=== PATIENT | female | born 1970 | race American Indian/Alaskan Native ===

== ENCOUNTER 2018-09-11 19:50 | Emergency (ER) | payer SELFPAY ==
--- NOTE | 2018-09-11 20:45 | Event Note ---
ED Screening Note ED Screening Note: HIT HEAD 1 W AGO SINCE HEADACHES AND OFF BALANCE PMH HTN AFIB GERD MD RX FLECANIDE ESOMEPRAZOLE DICCYCLMINE FOLIC ACID METOP TRAZADONE PAXIL NO BLOOD THINNER HYSTERECTOMY TUBAL APPY CHOLEY This initial assessment/diagnostic orders/clinical plan/treatment(s) is/are subject to change based on patients health status, clinical progression and re- assessment by fellow clinical providers in the ED. Further treatment and workup at subsequent clinical providers discretion. Patient/guardian urged not to elope from the ED as their condition may be serious if not clinically assessed and managed. Initial orders include: CT HEAD
[2018-09-11 20:48] VITALS: BP 112/79
[2018-09-11 21:01] LABS: Hematocrit 35.5 % (30.3-42.9); Hemoglobin 12.2 gm/dl (10.1-14.3); Mean Corpuscular HGB Conc 34 % (30-34); Mean Corpuscular Volume 99 fl (79-97); Platelet Count 165 K/mm3 (140-440); Red Blood Count 3.59 M/mm3 (3.65-5.03); Red Cell Distribution Width 18.9 % (13.2-15.2)
[2018-09-11 21:22] LABS: Alanine Aminotransferase 40 units/L (7-56); Albumin 4.4 g/dL (3.9-5); BUN/Creatinine Ratio 24; Blood Urea Nitrogen 12 mg/dL (7-17); Calcium 8.5 mg/dL (8.4-10.2); Hemolysis Index 5
[2018-09-11 21:31] LABS: Bilirubin,Urine NEG (Negative); Blood,Urine NEG (Negative); Color,Urine Yellow (Yellow); Mucus,Urine FEW /HPF; Protein,Urine <15 mg/dL mg/dL (Negative); Urobilinogen,Urine < 2.0 mg/dL (<2.0); WBC,Urine < 1.0 /HPF (0.0-6.0)
[2018-09-11] MEDS ORDERED: BENADRYL PO ONE (21:42)
[2018-09-11] MEDS ORDERED: REGLAN PO ONE (21:42)
[2018-09-11] MEDS ORDERED: TYLENOL PO ONE (21:42)
[2018-09-11] MEDS ORDERED: DELTASONE PO ONE (21:42)
--- NOTE | 2018-09-11 22:34 | Emergency Department Report ---
ED General Adult HPI - General Chief complaint: Neuro Symptoms/Deficit Stated complaint: HEAD PAIN Time Seen by Provider: 09/11/18 20:42 Source: patient Mode of arrival: Ambulatory Limitations: No Limitations - History of Present Illness Initial comments: pt is a 48 y/o aaf who presents s/p glf fall 1 week ago with no loc , complains of 4/10 headache occipital for past weak intermittent, pain is exacerbated by movement pain is relieved by rest pt denies n/v n cp no sob no lightheadedneds no n/v , pt denies fever sob post nasal drip and sinus congestion there is no wound , mild left occipital bruising. Onset/Timin -: week(s) Location: head Radiation: non-radiation Severity scale (0 -10): 4 Quality: aching Consistency: intermittent Worsens with: movement Associated Symptoms: headaches. denies: nausea/vomiting, shortness of breath, weakness Treatments Prior to Arrival: none - Related Data Previous Rx's Medication Instructions Recorded Last Taken Type Acetaminophen [Acetaminophen TAB] 1,000 mg PO Q6HR PRN #30 tablet 09/11/18 Unknown Rx Metoclopramide [Reglan] 10 mg PO Q6H PRN #30 tablet 09/11/18 Unknown Rx diphenhydrAMINE [Benadryl CAP] 25 mg PO Q6HR PRN #30 capsule 09/11/18 Unknown Rx Allergies Allergy/AdvReac Type Severity Reaction Status Date / Time No Known Allergies Allergy Unverified 09/11/18 20:22 ED Review of Systems ROS: Stated complaint: HEAD PAIN Other details as noted in HPI Constitutional: denies: chills, fever Eyes: denies: eye pain, eye discharge, vision change ENT: denies: ear pain, throat pain Respiratory: denies: cough, shortness of breath, wheezing Cardiovascular: denies: chest pain, palpitations Endocrine: no symptoms reported Gastrointestinal: denies: abdominal pain, nausea, diarrhea Genitourinary: denies: urgency, dysuria, discharge Musculoskeletal: denies: back pain, joint swelling, arthralgia Skin: denies: rash, lesions Neurological: headache. denies: weakness, numbness, paresthesias, confusion, abnormal gait, vertigo Psychiatric: as per HPI Hematological/Lymphatic: denies: easy bleeding, easy bruising ED Past Medical Hx - Past Medical History Previous Medical History?: Yes Hx Hypertension: Yes Hx Diabetes: Yes Hx Psychiatric Treatment: Yes (Depression) Additional medical history: A-fib, - Surgical History Past Surgical History?: Yes Hx Cholecystectomy: Yes Hx Appendectomy: Yes Additional Surgical History: X 5, Hysterectomy - Social History Smoking Status: Current Every Day Smoker Substance Use Type: None - Medications Home Medications: Home Medications Medication Instructions Recorded Confirmed Last Taken Type Acetaminophen [Acetaminophen TAB] 1,000 mg PO Q6HR PRN #30 tablet 09/11/18 Unknown Rx Metoclopramide [Reglan] 10 mg PO Q6H PRN #30 tablet 09/11/18 Unknown Rx diphenhydrAMINE [Benadryl CAP] 25 mg PO Q6HR PRN #30 capsule 09/11/18 Unknown Rx ED Physical Exam - General Limitations: No Limitations General appearance: alert, in no apparent distress - Head Head exam: Present: normocephalic, normal inspection - Expanded Head Exam Expanded Head exam: Absent: laceration, abrasion, contusion, hematoma, racoon eyes, salmon's sign, general tenderness, tenderness of temporal artery, CSF rhinorrhea, CSF otorrhea - Eye Eye exam: Present: normal appearance, PERRL, EOMI. Absent: conjunctival injection, nystagmus, periorbital swelling, periorbital tenderness Pupils: Present: normal accommodation - ENT ENT exam: Present: normal orophraynx, mucous membranes moist, TM's normal bilaterally, normal external ear exam - Neck Neck exam: Present: normal inspection, meningismus, full ROM. Absent: tenderness, lymphadenopathy, thyromegaly - Expanded Neck Exam Expanded Neck exam: Absent: tenderness, midline deformity, anterior neck swelling, thyroid mass, carotid bruit, tracheal deviation - Respiratory Respiratory exam: Present: normal lung sounds bilaterally. Absent: respiratory distress, wheezes, stridor, chest wall tenderness - Cardiovascular Cardiovascular Exam: Present: regular rate, normal rhythm, normal heart sounds. Absent: systolic murmur, diastolic murmur, rubs, gallop - GI/Abdominal GI/Abdominal exam: Present: soft, normal bowel sounds. Absent: distended, tenderness, bruit, hernia - Rectal Rectal exam: Present: deferred - Extremities Exam Extremities exam: Present: normal inspection, full ROM, normal capillary refill. Absent: tenderness, pedal edema, joint swelling, calf tenderness - Back Exam Back exam: Present: normal inspection. Absent: full ROM, tenderness, CVA tenderness (R), CVA tenderness (L), muscle spasm, paraspinal tenderness, vertebral tenderness, rash noted - Neurological Exam Neurological exam: Present: alert, oriented X3, CN II-XII intact, normal gait, r eflexes normal. Absent: motor sensory deficit - Expanded Neurological Exam Expanded Neurological exam: Absent: memory loss-remote event, memory loss-recent event, ataxia Patient oriented to: Present: person, place, time Speech: Present: fluid speech Cranial nerves: EOM's Intact: Normal, Gag Reflex: Normal, Tongue Deviation: Normal, Nystagmus: Normal, Facial Sensation: Normal Cerebellar function: Finger to Nose: Normal, Heel to [place]: Normal, Romberg: Normal Upper motor neuron: Charlie Neglect: Normal, Pronator Drift: Normal, Babinski Sign: Normal, Sensory Extinction: Normal Sensory exam: Upper Extremity Light Touch: Normal, Upper Extremity Pin Prick: Normal, Upper Extremity Temperature: Normal, UE 2 Point Discrimination: Normal, Lower Extremity Light Touch: Normal, Lower Extremity Pin Prick: Normal, Lower Extremity Temperature: Normal, LE 2 Point Discrimination: Normal Motor strength exam: RUE: 5, LUE: 5, RLE: 5, LLE: 5 DTR: bicep (R): 2+, bicep (L): 2+, ankle (R): 2+, ankle (L): 2+ Best Eye Response (Gina): (4) open spontaneously Best Motor Response (Gina): (6) obeys commands Best Verbal Response (Gina): (5) oriented [place] Total: 15 - Psychiatric Psychiatric exam: Present: normal affect, normal mood - Skin Skin exam: Present: warm, dry, intact, normal color. Absent: rash ED Course Vital Signs 09/11/18 20:45 Temperature 97.8 F Pulse Rate 84 Respiratory 18 Rate Blood Pressure 112/79 O2 Sat by Pulse 98 Oximetry ED Medical Decision Making - Lab Data Result diagrams: 09/11/18 20:50 09/11/18 20:50 - Radiology Data Radiology results: report reviewed, image reviewed Ordering Physician: GLENNA ARAGON Date of Service: 09/11/18 Procedure(s): CT head/brain wo con Accession Number(s): [id number] cc: GLEN[facility] WITHOUT CONTRAST INDICATION / CLINICAL INFORMATION: HEADACHE SP FALL. TECHNIQUE: All CT scans at this location are performed using CT dose reduction for ALARA by means of automated exposure control. COMPARISON: None available. FINDINGS: HEMORRHAGE: None. EXTRA-AXIAL SPACES: Normal in size and morphology for the patient's age. VENTRICULAR SYSTEM: Normal in size and morphology for the patient's age. CEREBRAL PARENCHYMA: No significant abnormality. No acute territorial infarct. MIDLINE SHIFT OR HERNIATION: None. CEREBELLUM / BRAINSTEM: No significant abnormality. ORBITS: Normal as visualized. SOFT TISSUES of HEAD: No significant abnormality. CALVARIUM: No significant abnormality. PARANASAL SINUSES / MASTOID AIR CELLS: Normal as visualized. ADDITIONAL FINDINGS: None. IMPRESSION: 1. No acute intracranial abnormality. Signer Name: Morteza To MD Signed: 09/11/2018 10:47 PM Workstation Name: [id number] Transcribed By: DMB Dictated By: Morteza To MD Electronically Authenticated By: Morteza To MD Signed Date/Time: 09/11/182246 DD/ 43 TD/TT: - Medical Decision Making CT head is normal , headache is improved plan: dc to home with rx for tylenol, reglan, benadryl prn headache follow up with pcp in 2-3 days pt verbalized agreement and understanding of same, pt dc'd to home in stable condition at this time. Critical care attestation.: If time is entered above; I have spent that time in minutes in the direct care of this critically ill patient, excluding procedure time. ED Disposition Clinical Impression: Headache Qualifiers: Headache type: unspecified Headache chronicity pattern: acute headache Intractability: not intractable Qualified Code(s): R51 - Headache Disposition: DC-01 TO HOME OR SELFCARE Is pt being admited?: No Does the pt Need Aspirin: No Condition: Stable Instructions: Acute Headache (ED) Prescriptions: Acetaminophen [Acetaminophen TAB] 1,000 mg PO Q6HR PRN #30 tablet PRN Reason: Headache diphenhydrAMINE [Benadryl CAP] 25 mg PO Q6HR PRN #30 capsule PRN Reason: Headache Metoclopramide [Reglan] 10 mg PO Q6H PRN #30 tablet PRN Reason: Headache Referrals: DIOGO FARAH MD [Staff Physician] - 3-5 Days Forms: Work/School Release Form(ED) Time of Disposition: 23:09
--- NOTE | 2018-09-11 22:52 | Cat Scan Report ---
CT HEAD WITHOUT CONTRAST INDICATION / CLINICAL INFORMATION: HEADACHE SP FALL. TECHNIQUE: All CT scans at this location are performed using CT dose reduction for ALARA by means of automated e xposure control. COMPARISON: None available. FINDINGS: HEMORRHAGE: None. EXTRA-AXIAL SPACES: Normal in size and morphology for the patient's age. VENTRICULAR SYSTEM: Normal in size and morphology for the patient's age. CEREBRAL PARENCHYMA: No significant abnormality. No acute territorial infarct. MIDLINE SHIFT OR HERNIATION: None. CEREBELLUM / BRAINSTEM: No significant abnormality. ORBITS: Normal as visualized. SOFT TISSUES of HEAD: No significant abnormality. CALVARIUM: No significant abnormality. PARANASAL SINUSES / MASTOID AIR CELLS: Normal as visualized. ADDITIONAL FINDINGS: None. IMPRESSION: 1. No acute intracranial abnormality. Signer Name: Morteza To MD Signed: 09/11/2018 10:47 PM Workstation Name: [id number]
== END 2018-09-11 23:15 | disposition home or self-care (01) ==
LOC: ED 19:50
DX: R51 Headache (principal); I10 Essential (primary) hypertension; F32.9 Major depressive disorder, single episode, unspecified; F17.200 Nicotine dependence, unspecified, uncomplicated; Z90.710 Acquired absence of both cervix and uterus; Z90.49 Acquired absence of other specified parts of digestive tract; Z90.89 Acquired absence of other organs
CPT/HCPCS: 36415; 70450; 80053; 81001; 85027; 99284; J7512

== ENCOUNTER 2018-12-25 23:48 | Inpatient (IN) | payer OTHER ==
[2018-12-26] MEDS ORDERED: dilTIAZem 25 MG/5 ML INJ IV ONE ×2 (00:17→00:32)
[2018-12-26] MEDS ORDERED: dilTIAZem 25 MG/5 ML INJ ONE (00:18)
[2018-12-26 00:35] LABS: Hematocrit 38.3 % (30.3-42.9); Hemoglobin 13.1 gm/dl (10.1-14.3); Mean Corpuscular HGB Conc 34 % (30-34); Mean Corpuscular Volume 106 fl (79-97); Platelet Count 130 K/mm3 (140-440); Red Blood Count 3.61 M/mm3 (3.65-5.03); Red Cell Distribution Width 17.8 % (13.2-15.2)
[2018-12-26] MEDS ORDERED: SODIUM CHLORIDE 0.9% 250ML 250 ML IV ONE (00:37)
[2018-12-26] MEDS ORDERED: SODIUM CHLORIDE 0.9% 1000 ML 1,000 ML ONE (00:39)
[2018-12-26 00:45] LABS: INR 0.97 (0.87-1.13)
[2018-12-26 00:46] LABS: Partial Thromboplastin Time 28.1 Sec. (24.2-36.6)
--- NOTE | 2018-12-26 00:48 | XRay Report ---
CHEST 1 VIEW 0029 INDICATION / CLINICAL INFORMATION: cp, sob. COMPARISON: None available. FINDINGS: SUPPORT DEVICES: None HEART / MEDIASTINUM: No significant abnormality. LUNGS / PLEURA: No significant pulmonary or pleural abnormality. No pneumothorax. ADDITIONAL FINDINGS: No significant additional findings. IMPRESSION: No significant acute abnormality Signer Name: Da Barnett MD Signed: 12/26/2018 12:44 AM Workstation Name: [id number]
[2018-12-26 00:58] LABS: BUN/Creatinine Ratio 13; Blood Urea Nitrogen 5 mg/dL (7-17); Calcium 8.8 mg/dL (8.4-10.2); Hemolysis Index 18
[2018-12-26] MEDS ORDERED: dilTIAZem/D5W 100 MG/100 ML BAG IV SCH (01:00)
--- NOTE | 2018-12-26 01:04 | Emergency Department Report ---
ED Chest Pain HPI - General Chief Complaint: Chest Pain Stated Complaint: CHEST PAIN/AFIB Time Seen by Provider: 12/26/18 00:06 Source: patient Mode of arrival: Ambulatory Limitations: No Limitations - History of Present Illness Initial Comments: 38-year-old female with history of atrial fibrillation noncompliant with metoprolol and flecainide times at least 3 months presents to the hospital complaining of substernal chest pressure and palpitations with racing heartbeat that started 30 minutes prior to arrival. Constant without aggravating or allev iating factors. No shortness of breath. Patient denies nausea, vomiting, or diaphoresis. Patient's last cardiology visit was in [place] 2 years ago. He does not currently take any anticoagulation. She states she also takes a PPI for reflux. - Related Data Previous Rx's Medication Instructions Recorded Last Taken Type Acetaminophen [Acetaminophen TAB] 1,000 mg PO Q6HR PRN #30 tablet 09/11/18 Unknown Rx Metoclopramide [Reglan] 10 mg PO Q6H PRN #30 tablet 09/11/18 Unknown Rx diphenhydrAMINE [Benadryl CAP] 25 mg PO Q6HR PRN #30 capsule 09/11/18 Unknown Rx Allergies Allergy/AdvReac Type Severity Reaction Status Date / Time No Known Allergies Allergy Verified 12/26/18 00:18 Heart Score - HEART Score History: Slightly suspicious EKG: Non-specific Age: 45-65 Risk factors: 1-2 risk factors Troponin: < normal limit HEART Score: 3 ED Review of Systems ROS: Stated complaint: CHEST PAIN/AFIB Other details as noted in HPI Comment: All other systems reviewed and negative ED Past Medical Hx - Past Medical History Hx Hypertension: Yes Hx Diabetes: Yes (borderline) Hx Psychiatric Treatment: Yes (Depression) Additional medical history: A-fib, - Surgical History Hx Cholecystectomy: Yes Hx Appendectomy: Yes Additional Surgical History: X 5, Hysterectomy - Social History Smoking Status: Current Every Day Smoker Substance Use Type: None - Medications Home Medications: Home Medications Medication Instructions Recorded Confirmed Last Taken Type Acetaminophen [Acetaminophen TAB] 1,000 mg PO Q6HR PRN #30 tablet 09/11/18 Unknown Rx Metoclopramide [Reglan] 10 mg PO Q6H PRN #30 tablet 09/11/18 Unknown Rx diphenhydrAMINE [Benadryl CAP] 25 mg PO Q6HR PRN #30 capsule 09/11/18 Unknown Rx ED Physical Exam - General Limitations: No Limitations - Other Other exam information: General: No acute distress Head: Atraumatic Eyes: normal appearance ENT: Moist mucous membranes Neck: Normal appearance, no midline tenderness Chest: Clear to auscultation bilaterally CV: Tachycardic irregular rhythm Abdomen: Soft, alterable abdominal surgical scars a reducible ventral hernia, soft, nondistended Back: Normal inspection Extremity: Normal inspection infection, full range of motion Neuro: Alert O x 3, no facial asymmetry, speech clear, no gross motor sensory deficit Psych: Appropriate behavior Skin: No rash ED Course Vital Signs 12/25/18 12/26/18 12/26/18 23:53 00:06 00:08 Temperature 97.4 F L Pulse Rate 165 H 171 H 160 H Respiratory 12 19 Rate Blood Pressure 111/80 O2 Sat by Pulse 97 Oximetry 12/26/18 12/26/18 12/26/18 00:16 00:26 00:30 Temperature Pulse Rate 166 H 171 H 134 H Respiratory 21 25 H Rate Blood Pressure 114/88 112/61 O2 Sat by Pulse 98 100 Oximetry 12/26/18 12/26/18 12/26/18 00:46 00:55 01:00 Temperature Pulse Rate 167 H 114 H 107 H Respiratory 16 17 Rate Blood Pressure 91/61 95/64 O2 Sat by Pulse 98 98 Oximetry 12/26/18 12/26/18 12/26/18 01:16 01:30 01:46 Temperature Pulse Rate 100 H 98 H 94 H Respiratory 16 19 16 Rate Blood Pressure 114/79 110/78 107/76 O2 Sat by Pulse 99 97 98 Oximetry 12/26/18 12/26/18 02:00 02:16 Temperature Pulse Rate 96 H 102 H Respiratory 17 16 Rate Blood Pressure 107/76 117/78 O2 Sat by Pulse 98 96 Oximetry - Reevaluation(s) Reevaluation #1: 12/26/18 01:44 initial rhythm afib/aflutter on monitor with fluctuating rate and rhythm pt given cardizem 20mg then cardizem initiated. Posttreatment rhythm is now normal sinus. Drip will be continued as of now and patient is the hospitalist service with neurology consultation. LB score - Lb Score Age > 65: (0) No Aspirin use within the Past 7 Days: (0) No 3 or more CAD Risk Factors: (0) No 2 or more Angina events in past 24 hrs: (0) No Known CAD with more than 50% Stenosis: (0) No Elevated Cardiac Markers: (0) No ST Deviation Greater than 0.5mm: (0) No LB Score: 0 ED Medical Decision Making - Lab Data Result diagrams: 12/26/18 00:19 12/26/18 00:19 Lab Results 12/26/18 12/26/18 12/26/18 Range/Units 00:19 00: 00:19 WBC 4.3 L (4.5-11.0) K/mm3 RBC 3.61 L (3.65-5.03) M/mm3 Hgb 13.1 (10.1-14.3) gm/dl Hct 38.3 (30.3-42.9) % MCV 106 H (79-97) fl MCH 36 H (28-32) pg MCHC 34 (30-34) % RDW 17.8 H (13.2-15.2) % Plt Count 130 L (140-440) K/mm3 Lymph % (Auto) Secretary Receptionist Seg Neutrophils % Secretary Receptionist PT 12.8 (12.2-14.9) Sec. INR 0.97 (0.87-1.13) APTT 28.1 (24.2-36.6) Sec. Sodium 139 (137-145) mmol/L Potassium 3.0 L (3.6-5.0) mmol/L Chloride 103.3 (98-107) mmol/L Carbon Dioxide 15 L (22-30) mmol/L Anion Gap 24 mmol/L BUN 5 L (7-17) mg/dL Creatinine 0.4 L (0.7-1.2) mg/dL Estimated GFR > 60 ml/min BUN/Creatinine Ratio 13 % Glucose 103 H (65-100) mg/dL Calcium 8.8 (8.4-10.2) mg/dL Troponin T < 0.010 (0.00-0.029) ng/mL TSH (0.270-4.200) mlU/mL Free T4 (0.76-1.46) ng/dL 12/26/18 Range/Units 00:19 WBC (4.5-11.0) K/mm3 RBC (3.65-5.03) M/mm3 Hgb (10.1-14.3) gm/dl Hct (30.3-42.9) % MCV (79-97) fl MCH (28-32) pg MCHC (30-34) % RDW (13.2-15.2) % Plt Count (140-440) K/mm3 Lymph % (Auto) Seg Neutrophils % PT (12.2-14.9) Sec. INR (0.87-1.13) APTT (24.2-36.6) Sec. Sodium (137-145) mmol/L Potassium (3.6-5.0) mmol/L Chloride (98-107) mmol/L Carbon Dioxide (22-30) mmol/L Anion Gap mmol/L BUN (7-17) mg/dL Creatinine (0.7-1.2) mg/dL Estimated GFR ml/min BUN/Creatinine Ratio % Glucose (65-100) mg/dL Calcium (8.4-10.2) mg/dL Troponin T (0.00-0.029) ng/mL TSH 1.980 (0.270-4.200) mlU/mL Free T4 1.22 (0.76-1.46) ng/dL - EKG Data -: EKG Interpreted by Me (suspected a flutter rate 165 ) - Radiology Data Radiology results: report reviewed Fluoro Time In Minutes: CHEST 1 VIEW 0029 INDICATION / CLINICAL INFORMATION: cp, sob. COMPARISON: None available. FINDINGS: SUPPORT DEVICES: None HEART / MEDIASTINUM: No significant abnormality. LUNGS / PLEURA: No significant pulmonary or pleural abnormality. No pneumothorax. ADDITIONAL FINDINGS: No significant additional findings. IMPRESSION: No significant acute abnormality - Medical Decision Making patients initial rhythm was narrow complex tachycardic and 160s. On a monitor rhythm with fluctuate greatly 170s. Given the rapid change in heart rate and irregular beats noted on monitor patient received Cardizem for A. fib/flutter with RVR. Heart rate improved with initial bolus and Cardizem drip initiated. Repeat EKG after slowing down rate shows sinus rhythm. Patient received by mouth potassium for mild hypokalemia. Magnesium is normal. Hospitalist informed for admission. - Differential Diagnosis arrhythmia, SVT, A. fib, electrolyte on the monitor, LA Critical Care Time: Yes Critical care time in (mins) excluding proc time.: 35 Critical care attestation.: If time is entered above; I have spent that time in minutes in the direct care of this critically ill patient, excluding procedure time. ED Disposition Clinical Impression: Atrial fibrillation with rapid ventricular response, Noncompliance with medication regimen, Hypokalemia Disposition: OP ADMIT IP TO THIS HOSP Is pt being admited?: Yes Condition: Stable Time of Disposition: 02:00
[2018-12-26 01:09] LABS: Free T4 (Free Thyroxine) 1.22 ng/dL (0.76-1.46)
[2018-12-26] MEDS ORDERED: POTASSIUM CHLORIDE ER 20 MEQ TAB PO ONE (01:45)
[2018-12-26] MEDS ORDERED: ONDANSETRON 4 MG/2 ML INJ IV PRN (02:03)
[2018-12-26] MEDS ORDERED: ACETAMINOPHEN 325 MG TAB PO PRN (02:03)
--- NOTE | 2018-12-26 02:40 | History and Physical Report ---
History of Present Illness Date of examination: 12/26/18 Date of admission: 12/25/2018 Chief complaint: palpitation History of present illness: Pt is a 38-year-old female with PMHx of atrial fibrillation, asthma, DM type 2, HTN who presents to the ER with c/o palpitation a few hours prior to coming to the ER. Pt states that the palpitation started suddenly, she has a history of A- Fib, she has been taking metoprolol and flecainide for her A-Fib, pt reports mild substernal chest pressure and palpitations, denies diaphoresis, denies nausea, denies vomiting, denies headache, denies dizziness. 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 In the ER pt's HR was 117, she was started on cardizem drip and admitted for further evaluation and treatment. Past History Past Medical History: diabetes, hypertension, other (asthma) Past Surgical History: Other (multiple surgery) Social history: no significant social history Family history: no significant family history Medications and Allergies Allergies Allergy/AdvReac Type Severity Reaction Status Date / Time No Known Allergies Allergy Verified 12/26/18 00:18 Home Medications Medication Instructions Recorded Confirmed Last Taken Type Acetaminophen [Acetaminophen TAB] 1,000 mg PO Q6HR PRN #30 tablet 09/11/18 Unknown Rx Metoclopramide [Reglan] 10 mg PO Q6H PRN #30 tablet 09/11/18 Unknown Rx diphenhydrAMINE [Benadryl CAP] 25 mg PO Q6HR PRN #30 capsule 09/11/18 Unknown Rx Active Meds: Active Medications Acetaminophen (Tylenol) 650 mg PO Q4H PRN PRN Reason: Pain MILD(1-3)/Fever >100.5/COOMBS Diltiazem HCl (Cardizem/D5w 100mg/100ml) 100 mg in 100 mls @ 5 mls/hr IV TITR IMANI; Protocol Last Admin: 12/26/18 00:55 Dose: 5 mg/hr, 5 mls/hr Documented by: Ondansetron HCl (Zofran) 4 mg IV Q8H PRN PRN Reason: Nausea And Vomiting Sodium Chloride (Sodium Chloride Flush Syringe 10 Ml) 10 ml IV BID IMANI Sodium Chloride (Sodium Chloride Flush Syringe 10 Ml) 10 ml IV PRN PRN PRN Reason: LINE FLUSH Review of Systems Cardiovascular: palpitations Exam - Constitutional Vitals: Temp Pulse Resp BP Pulse Ox 97.4 F L 102 H 16 117/78 96 12/25/18 23:53 12/26/18 02:16 12/26/18 02:16 12/26/18 02:16 12/26/18 02:16 General appearance: Present: no acute distress - EENT Eyes: Present: EOM intact ENT: hearing intact - Neck Neck: Present: normal ROM - Respiratory Respiratory effort: normal Respiratory: bilateral: CTA - Cardiovascular Rhythm: irregularly irregular - Extremities Extremities: no ischemia, No edema Peripheral Pulses: within normal limits - Abdominal Female genitourinary: Present: deferred - Rectal Rectal Exam: deferred - Integumentary Integumentary: Present: warm, dry - Musculoskeletal Musculoskeletal: strength equal bilaterally - Psychiatric Psychiatric: cooperative - Neurologic Neurologic: moves all extremities Results - Labs CBC & Chem 7: 12/26/18 00:19 12/26/18 00:19 Labs: Laboratory Last Values WBC 4.3 K/mm3 (4.5-11.0) L 12/26/18 00:19 RBC 3.61 M/mm3 (3.65-5.03) L 12/26/18 00:19 Hgb 13.1 gm/dl (10.1-14.3) 12/26/18 00:19 Hct 38.3 % (30.3-42.9) 12/26/18 00:19 MCV 106 fl (79-97) H 12/26/18 00:19 MCH 36 pg (28-32) H 12/26/18 00:19 MCHC 34 % (30-34) 12/26/18 00:19 RDW 17.8 % (13.2-15.2) H 12/26/18 00:19 Plt Count 130 K/mm3 (140-440) L 12/26/18 00:19 Lymph % (Auto) Graining Press Operator 12/26/18 00:19 Seg Neutrophils % Graining Press Operator 12/26/18 00:19 PT 12.8 Sec. (12.2-14.9) 12/26/18 00:19 INR 0.97 (0.87-1.13) 12/26/18 00:19 APTT 28.1 Sec. (24.2-36.6) 12/26/18 00:19 Sodium 139 mmol/L (137-145) 12/26/18 00:19 Potassium 3.0 mmol/L (3.6-5.0) L 12/26/18 00:19 Chloride 103.3 mmol/L (98-107) 12/26/18 00:19 Carbon Dioxide 15 mmol/L (22-30) L 12/26/18 00:19 Anion Gap 24 mmol/L 12/26/18 00:19 BUN 5 mg/dL (7-17) L 12/26/18 00:19 Creatinine 0.4 mg/dL (0.7-1.2) L 12/26/18 00:19 Estimated GFR > 60 ml/min 12/26/18 00:19 BUN/Creatinine Ratio 13 % 12/26/18 00:19 Glucose 103 mg/dL (65-100) H 12/26/18 00:19 Calcium 8.8 mg/dL (8.4-10.2) 12/26/18 00:19 Magnesium 1.80 mg/dL (1.7-2.3) 12/26/18 Unknown Troponin T < 0.010 ng/mL (0.00-0.029) 12/26/18 00:19 TSH 1.980 mlU/mL (0.270-4.200) 12/26/18 00:19 Free T4 1.22 ng/dL (0.76-1.46) 12/26/18 00:19 Assessment and Plan Assessment and plan: 1. Afib with RVR 2. DM type 2 (diet control 3. HTN 4. H/o asthma Plan: Pt is admitted to [facility] for A-Fib with RVR Continue cardizem drip Continue Cardiac enzyme x 2 more Consult cardiology Monitor vital signs/HR Continue home meds DVT prophylaxis with lovenox Plan of care d/w pt, voiced understading Advance Directives: Yes VTE prophylaxis?: Chemical Plan of care discussed with patient/family: Yes
[2018-12-26 05:17] LABS: Anisocytosis 1+; Basophils % (Manual) 0 % (0.0-1.8); Macrocytosis 1+; Platelet Estimate Consistent w Auto; Total Cells Counted 100
[2018-12-26] MEDS ORDERED: oxyCODONE /ACETAMINOPHEN 5-325MG TAB PO PRN (10:21)
--- NOTE | 2018-12-26 11:45 | Consultation ---
History of Present Illness Consult date: 12/26/18 Consult reason: atrial fibrillation History of present illness: This is a 48 year old woman who has a history of paroxysmal atrial fibrillation previously treated with flecainide and metoprolol. She is not on oral anticoagulation presumably due to lows CHADS2 Her latest cardiac workup was done at [facility] late February. The echocardiogram reports a normal left ventricular systolic function, ejection fraction 55%, and the thallium showed no ischemia. 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 She presented with complaints of palpitations found to be in rapid atrial flut ter with a 2:1 conduction ratio. Labs measurement shows hypokalemia with a potassium at 3.0. TSH is within normal limits. Patient was treated intravenous Diltiazem and has since reverted to sinus rhythm. Cardiology consultation has been requested. Past History Past Medical History: diabetes, hypertension, other (asthma) Past Surgical History: Other (multiple surgery) Social history: no significant social history Family history: no significant family history Medications and Allergies Allergies Allergy/AdvReac Type Severity Reaction Status Date / Time No Known Allergies Allergy Verified 12/26/18 00:18 Home Medications Medication Instructions Recorded Confirmed Last Taken Type Acetaminophen [Acetaminophen TAB] 1,000 mg PO Q6HR PRN #30 tablet 09/11/18 Unknown Rx Metoclopramide [Reglan] 10 mg PO Q6H PRN #30 tablet 09/11/18 Unknown Rx diphenhydrAMINE [Benadryl CAP] 25 mg PO Q6HR PRN #30 capsule 09/11/18 Unknown Rx Active Meds: Active Medications Acetaminophen (Tylenol) 650 mg PO Q4H PRN PRN Reason: Pain MILD(1-3)/Fever >100.5/COOMBS Last Admin: 12/26/18 08:36 Dose: 650 mg Documented by: Diltiazem HCl (Cardizem/D5w 100mg/100ml) 100 mg in 100 mls @ 5 mls/hr IV TITR IMANI; Protocol Last Admin: 12/26/18 00:55 Dose: 5 mg/hr, 5 mls/hr Documented by: Ondansetron HCl (Zofran) 4 mg IV Q8H PRN PRN Reason: Nausea And Vomiting Oxycodone/Acetaminophen (Percocet 5/325) 1 tab PO Q6H PRN PRN Reason: Pain, Moderate (4-6) Sodium Chloride (Sodium Chloride Flush Syringe 10 Ml) 10 ml IV BID IMANI Sodium Chloride (Sodium Chloride Flush Syringe 10 Ml) 10 ml IV PRN PRN PRN Reason: LINE FLUSH Physical Examination Vital Signs Temp Pulse Resp BP Pulse Ox 97.4 F L 165 H 12 111/80 97 12/25/18 23:53 12/25/18 23:53 12/25/18 23:53 12/25/18 23:53 12/25/18 23:53 General appearance: no acute distress HEENT: Positive: PERRL Neck: Positive: trachea midline Cardiac: Positive: Reg Rate and Rhythm Lungs: Positive: Decreased Breath Sounds Neuro: Positive: Grossly Intact Extremities: Absent: edema Results 12/26/18 00:19 12/26/18 00:19 Coagulation 12/26/18 Range/Units 00:19 PT 12.8 (12.2-14.9) Sec. INR 0.97 (0.87-1.13) APTT 28.1 (24.2-36.6) Sec. CBC 12/26/18 Range/Units 00:19 WBC 4.3 L (4.5-11.0) K/mm3 RBC 3.61 L (3.65-5.03) M/mm3 Hgb 13.1 (10.1-14.3) gm/dl Hct 38.3 (30.3-42.9) % Plt Count 130 L (140-440) K/mm3 Comprehensive Metabolic Panel 12/26/18 Range/Units 00:19 Sodium 139 (137-145) mmol/L Potassium 3.0 L (3.6-5.0) mmol/L Chloride 103.3 (98-107) mmol/L Carbon Dioxide 15 L (22-30) mmol/L BUN 5 L (7-17) mg/dL Creatinine 0.4 L (0.7-1.2) mg/dL Glucose 103 H (65-100) mg/dL Calcium 8.8 (8.4-10.2) mg/dL Assessment and Plan Paroxysmal atrial fib/flutter reverted to sinus rhythm on IV diltiazem normal MPI 02/2018 at [facility] normal LVEF 55% done at [facility] 02/2018
--- NOTE | 2018-12-26 12:05 | Progress Note ---
Assessment and Plan Assessment and plan: Paroxysmal atrial fibrillation. Continue IV diltiazem per cardiology. Patient with normal MPI February 2018 at [facility]. Normal EF of 55%. Asthma. Compensated. Diabetes mellitus type 2. Continue Accu-Cheks and sliding scale insulin. Hypertension. Continue antihypertensive medications. History Interval history: No new issues overnight. Hospitalist Physical - Constitutional Vitals: Temp Pulse Resp BP Pulse Ox 97.9 F 96 H 18 122/85 95 12/26/18 08:45 12/26/18 05:00 12/26/18 08:45 12/26/18 08:45 12/26/18 08:45 General appearance: Present: no acute distress - EENT Eyes: Present: PERRL, EOM intact ENT: hearing intact, clear oral mucosa, dentition normal - Neck Neck: Present: supple, normal ROM - Respiratory Respiratory effort: normal Respiratory: bilateral: CTA - Cardiovascular Rhythm: regular Heart Sounds: Present: S1 & S2. Absent: gallop, rub - Extremities Extremities: no ischemia, No edema, Full ROM - Abdominal General gastrointestinal: soft, non-tender, non-distended, normal bowel sounds - Integumentary Integumentary: Present: clear, warm, dry - Neurologic Neurologic: CNII-XII intact, moves all extremities Results - Labs CBC & Chem 7: 12/26/18 00:19 12/26/18 00:19 Labs: Laboratory Last Values WBC 4.3 K/mm3 (4.5-11.0) L 12/26/18 00:19 RBC 3.61 M/mm3 (3.65-5.03) L 12/26/18 00:19 Hgb 13.1 gm/dl (10.1-14.3) 12/26/18 00:19 Hct 38.3 % (30.3-42.9) 12/26/18 00:19 MCV 106 fl (79-97) H 12/26/18 00:19 MCH 36 pg (28-32) H 12/26/18 00:19 MCHC 34 % (30-34) 12/26/18 00:19 RDW 17.8 % (13.2-15.2) H 12/26/18 00:19 Plt Count 130 K/mm3 (140-440) L 12/26/18 00:19 Lymph % (Auto) Translational Specialist 10/31/19 00:19 Add Manual Diff Complete 12/26/18 00:19 Total Counted 100 12/26/18 00:19 Seg Neutrophils % Translational Specialist 12/26/18 00:19 Seg Neuts % (Manual) 40.0 % (40.0-70.0) 12/26/18 00:19 Band Neutrophils % 0 % 12/26/18 00:19 Lymphocytes % (Manual) 58.0 % (13.4-35.0) H 12/26/18 00:19 Reactive Lymphs % (Man) 0 % 12/26/18 00:19 Monocytes % (Manual) 1.0 % (0.0-7.3) 12/26/18 00:19 Eosinophils % (Manual) 1.0 % (0.0-4.3) 12/26/18 00:19 Basophils % (Manual) 0 % (0.0-1.8) 12/26/18 00:19 Metamyelocytes % 0 % 12/26/18 00:19 Myelocytes % 0 % 12/26/18 00:19 Promyelocytes % 0 % 12/26/18 00:19 Blast Cells % 0 % 12/26/18 00:19 Nucleated RBC % Not Reportable 12/26/18 00:19 Seg Neutrophils # Man 1.7 K/mm3 (1.8-7.7) L 12/26/18 00:19 Band Neutrophils # 0.0 K/mm3 12/26/18 00:19 Lymphocytes # (Manual) 2.5 K/mm3 (1.2-5.4) 12/26/18 00:19 Abs React Lymphs (Man) 0.0 K/mm3 12/26/18 00:19 Monocytes # (Manual) 0.0 K/mm3 (0.0-0.8) 12/26/18 00:19 Eosinophils # (Manual) 0.0 K/mm3 (0.0-0.4) 12/26/18 00:19 Basophils # (Manual) 0.0 K/mm3 (0.0-0.1) 12/26/18 00:19 Metamyelocytes # 0.0 K/mm3 12/26/18 00:19 Myelocytes # 0.0 K/mm3 12/26/18 00:19 Promyelocytes # 0.0 K/mm3 12/26/18 00:19 Blast Cells # 0.0 K/mm3 12/26/18 00:19 WBC Morphology Not Reportable 12/26/18 00:19 Hypersegmented Neuts Not Reportable 12/26/18 00:19 Hyposegmented Neuts Not Reportable 12/26/18 00:19 Hypogranular Neuts Not Reportable 12/26/18 00:19 Smudge Cells Not Reportable 12/26/18 00:19 Toxic Granulation Not Reportable 12/26/18 00:19 Toxic Vacuolation Not Reportable 12/26/18 00:19 Dohle Bodies Not Reportable 12/26/18 00:19 Pelger-Huet Anomaly Not Reportable 12/26/18 00:19 Serena Rods Not Reportable 12/26/18 00:19 Platelet Estimate Consistent w auto 12/26/18 00:19 Clumped Platelets Not Reportable 12/26/18 00:19 Plt Clumps, EDTA Not Reportable 12/26/18 00:19 Large Platelets Not Reportable 12/26/18 00:19 Giant Platelets Not Reportable 12/26/18 00:19 Platelet Satelliting Not Reportable 12/26/18 00:19 Plt Morphology Comment Not Reportable 12/26/18 00:19 RBC Morphology Not Reportable 12/26/18 00:19 Dimorphic RBCs Not Reportable 12/26/18 00:19 Polychromasia Not Reportable 12/26/18 00:19 Hypochromasia Not Reportable 12/26/18 00:19 Poikilocytosis Not Reportable 12/26/18 00:19 Anisocytosis 1+ 12/26/18 00:19 Microcytosis Not Reportable 12/26/18 00:19 Macrocytosis 1+ 12/26/18 00:19 Spherocytes Not Reportable 12/26/18 00:19 Pappenheimer Bodies Not Reportable 12/26/18 00:19 Sickle Cells Not Reportable 12/26/18 00:19 Target Cells Not Reportable 12/26/18 00:19 Tear Drop Cells Not Reportable 12/26/18 00:19 Ovalocytes Not Reportable 12/26/18 00:19 Helmet Cells Not Reportable 12/26/18 00:19 Gallego-Schneider Bodies Not Reportable 12/26/18 00:19 Partlow Rings Not Reportable 12/26/18 00:19 [place] Cells Not Reportable 12/26/18 00:19 Bite Cells Not Reportable 12/26/18 00:19 Crenated Cell Not Reportable 12/26/18 00:19 Elliptocytes Not Reportable 12/26/18 00:19 Acanthocytes (Spur) Not Reportable 12/26/18 00:19 Rouleaux Not Reportable 12/26/18 00:19 Hemoglobin C Crystals Not Reportable 12/26/18 00:19 Schistocytes Not Reportable 12/26/18 00:19 Malaria parasites Not Reportable 12/26/18 00:19 Sergio Bodies Not Reportable 12/26/18 00:19 Hem Pathologist Commnt No 12/26/18 00:19 PT 12.8 Sec. (12.2-14.9) 12/26/18 00:19 INR 0.97 (0.87-1.13) 12/26/18 00:19 APTT 28.1 Sec. (24.2-36.6) 12/26/18 00:19 Sodium 139 mmol/L (137-145) 12/26/18 00:19 Potassium 3.0 mmol/L (3.6-5.0) L 12/26/18 00:19 Chloride 103.3 mmol/L (98-107) 12/26/18 00:19 Carbon Dioxide 15 mmol/L (22-30) L 12/26/18 00:19 Anion Gap 24 mmol/L 12/26/18 00:19 BUN 5 mg/dL (7-17) L 12/26/18 00:19 Creatinine 0.4 mg/dL (0.7-1.2) L 12/26/18 00:19 Estimated GFR > 60 ml/min 12/26/18 00:19 BUN/Creatinine Ratio 13 % 12/26/18 00:19 Glucose 103 mg/dL (65-100) H 12/26/18 00:19 Calcium 8.8 mg/dL (8.4-10.2) 12/26/18 00:19 Magnesium 1.80 mg/dL (1.7-2.3) 12/26/18 Unknown Troponin T < 0.010 ng/mL (0.00-0.029) 12/26/18 05:31 TSH 1.980 mlU/mL (0.270-4.200) 12/26/18 00:19 Free T4 1.22 ng/dL (0.76-1.46) 12/26/18 00:19 Active Medications - Current Medications Current Medications: Generic Name Dose Route Start Last Admin Trade Name Freq PRN Reason Stop Dose Admin Acetaminophen 650 mg 12/26/18 02:03 12/26/18 08:36 Tylenol PO 650 mg Q4H PRN Administration Pain MILD(1-3)/Fever >100.5/COOMBS Diltiazem HCl 100 mg in 100 mls @ 5 mls/hr 12/26/18 01:00 12/26/18 00:55 Cardizem/D5w 100mg/100ml IV 5 mg/hr TITR IMANI 5 mls/hr Administration Protocol 5 MG/HR Ondansetron HCl 4 mg 12/26/18 02:03 Zofran IV Q8H PRN Nausea And Vomiting Oxycodone/Acetaminophen 1 tab 12/26/18 10:21 12/26/18 11:51 Percocet 5/325 PO 1 tab Q6H PRN Administration Pain, Moderate (4-6) Sodium Chloride 10 ml 12/26/18 10:00 12/26/18 11:52 Sodium Chloride Flush Syringe 10 Ml IV 10 ml BID IMANI Administration Sodium Chloride 10 ml 12/26/18 02:03 Sodium Chloride Flush Syringe 10 Ml IV PRN PRN LINE FLUSH
[2018-12-26] MEDS ORDERED: dilTIAZem CD 180 MG CAP PO SCH (13:00)
--- NOTE | 2018-12-26 15:25 | Discharge Summary ---
Providers - Providers Date of Admission: 12/26/18 02:03 Date of discharge: 12/26/18 Attending physician: SHARITA STOVALL 12/26/18 06:39 Consult to Physician [CONS] Routine Comment: Consulting Provider: RENALDO DUTTA Physician Instructions: Reason For Exam: palpitation Primary care physician: LABORER GOLF COURSE Hospitalization Reason for admission: a fib Condition: Stable Hospital course: 48-year-old woman with a history of hypertension and afib recently located here from [place] treated with flecainide, but no anticoagulation presented master afib RVR. Reportedly 6 months ago, she was evaluated at [facility] for atypical chest pain, a Lexiscan thallium stress test was normal, and echocardiogram showed a normal left ventricular systolic function, ejection fraction 55%. She presented here with acute onset palpitations, ECG was a rapid atrial flutter with 2-1 AV conduction, ventricular rate 165. In the emergency room she was treated with intravenous Cardizem, and soon after has reverted to a stable sinus rhythm. EKG is sinus rhythm showed no ischemic changes. The patient was seen by cardiology consultation. IV cardizem was discontinued and pt was transitioned to her previous home regimen of flecainide, coumadin 7.5 mg and cardizem 180 mg QD.The patient will discharge home and follow up with career development associate outpatient.Avoid alcohol and caffeine as well as discontinue tobacco use. Patient is stable for discharge. Dedicated discharge time 35 minutes. Disposition: TO HOME OR SELFCARE Time spent for discharge: 35 - Discharge Diagnoses (1) Atrial fibrillation with rapid ventricular response Status: Acute (2) Hypokalemia Status: Acute (3) Noncompliance with medication regimen Status: Acute Core Measure Documentation - Palliative Care Palliative Care/ Comfort Measures: Not Applicable - Core Measures Any of the following diagnoses?: none Exam - Constitutional Vitals: Temp Pulse Resp BP Pulse Ox 98.5 F 86 18 135/94 100 12/26/18 12:23 12/26/18 14:30 12/26/18 12:23 12/26/18 14:30 12/26/18 12:23 General appearance: Present: no acute distress, well-nourished - EENT Eyes: Present: PERRL ENT: hearing intact, clear oral mucosa - Neck Neck: Present: supple, normal ROM - Respiratory Respiratory effort: normal Respiratory: bilateral: CTA - Cardiovascular Heart Sounds: Present: S1 & S2. Absent: rub, click - Extremities Extremities: pulses symmetrical, No edema Peripheral Pulses: within normal limits - Abdominal General gastrointestinal: Present: soft, non-tender, non-distended, normal bowel sounds Female genitourinary: Present: normal - Integumentary Integumentary: Present: clear, warm, dry - Musculoskeletal Musculoskeletal: gait normal, strength equal bilaterally - Psychiatric Psychiatric: appropriate mood/affect, intact judgment & insight - Neurologic Neurologic: CNII-XII intact, moves all extremities Plan Activity: no restrictions Weight Bearing Status: Weight Bear as Tolerated Follow up with: PRIMARY CAREMD [Primary Care Provider] - 3-5 Days TARA WALKER MD [Staff Physician] - 7 Days Prescriptions: dilTIAZem CD [Cardizem CD] 180 mg PO QDAY #30 capsule Warfarin [Coumadin] 7.5 mg PO DAILY@1700 #30 tab traZODone [Desyrel] 150 mg PO QHS #30 tab Folic Acid [Folvite] 1 mg PO DAILY #30 tab PARoxetine HCl [Paroxetine] 30 mg PO DAILY #30 tab Flecainide [Tambocor] 50 mg PO Q12H #60 tab
[2018-12-26 16:42] VITALS: BP 173/86
[2018-12-26] MEDS ORDERED: WARFARIN 5 MG TAB PO SCH (17:00)
[2018-12-26] MEDS ORDERED: WARFARIN 7.5 MG TAB PO SCH (17:00)
[2018-12-26] MEDS ORDERED: FLECAINIDE 100 MG TAB PO SCH (22:00)
== END 2018-12-26 17:50 | disposition home or self-care (01) | DRG 310 ==
LOC: ED 23:48 → 4A 12-26 02:03
PROVIDERS: ADMIT Internal Medicine; ATTEND Hospitalist
DX: I48.0 Paroxysmal atrial fibrillation (principal); I10 Essential (primary) hypertension; F32.9 Major depressive disorder, single episode, unspecified; E87.6 Hypokalemia; J45.909 Unspecified asthma, uncomplicated; E11.9 Type 2 diabetes mellitus without complications; F17.200 Nicotine dependence, unspecified, uncomplicated; I48.92 Unspecified atrial flutter; Z90.710 Acquired absence of both cervix and uterus; Z79.899 Other long term (current) drug therapy; Z91.14 Patient's other noncompliance with medication regimen
CPT/HCPCS: 36415; 71045; 80048; 83735; 84439; 84443; 84484; 85007; 85025; 85610; 85730; 93005; 93010; 94760; G0378; J2405; J7030

== ENCOUNTER 2019-01-15 00:12 | Inpatient (IN) | payer SELFPAY ==
[2019-01-15] MEDS ORDERED: dilTIAZem 25 MG/5 ML INJ IV ONE ×2 (00:39→01:18)
--- NOTE | 2019-01-15 00:52 | Emergency Department Report ---
ED Chest Pain HPI - General Stated Complaint: CHEST PAIN Time Seen by Provider: 01/15/19 00:39 Source: patient, family, old records reviewed Mode of arrival: Ambulatory - History of Present Illness Initial Comments: Mrs. Chirinos is a 48 yo female with hx of atrial fibrillation who presents with chest pain, shortness of breath and palpitations, suddeon onset while at work approximately 1 PM. 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 Her heart was racing so hard that it made her body rock. Symptoms became worse when laying flat. Chest pain developed 1 1/2 hours prior to arrival. She was evaluated here 3 weeks ago at the end of November. She was treated for afib RVR. She was unable to afford the medications without health insurance. She moved from [place] to [place] one year ago. According to cardiology consultation during EMR review, she has had recent cardiac w/u with was normal at OSH. Discharge medications: dilitiazem warfarin trazodone folic acid paroxetine flecainide Complaint: chest pain, other (palpitations rapid heartbeat) -: Sudden, This afternoon (1 pm) Onset: during rest Pain Location: substernal Severity: severe Severity scale (0 -10): 7 Quality: tightness Consistency: constant Improves With: nothing Worsens With: supine Context: recent illness Treatments Prior to Arrival: none - Related Data Home Medications Medication Instructions Recorded Confirmed Last Taken Dicyclomine [Bentyl] 20 mg PO PRN 12/26/18 12/26/18 Unknown Diphenoxylate/Atropine 2.5 mg PO PRN PRN 12/26/18 12/26/18 Unknown Previous Rx's Medication Instructions Recorded Last Taken Type Flecainide [Tambocor] 50 mg PO Q12H #60 tab 12/26/18 Unknown Rx Flecainide [Tambocor] 50 mg PO Q12HR #60 tab 12/26/18 Unknown Rx Folic Acid [Folvite] 1 mg PO DAILY #30 tab 12/26/18 Unknown Rx PARoxetine HCl [Paroxetine] 30 mg PO DAILY #30 tab 12/26/18 Unknown Rx Warfarin [Coumadin] 7.5 mg PO DAILY@1700 #30 tab 12/26/18 Unknown Rx dilTIAZem CD [Cardizem CD] 180 mg PO QDAY #30 capsule 12/26/18 Unknown Rx traZODone [Desyrel] 150 mg PO QHS #30 tab 12/26/18 Unknown Rx Allergies Allergy/AdvReac Type Severity Reaction Status Date / Time No Known Allergies Allergy Verified 12/26/18 00:18 Heart Score - HEART Score History: Slightly suspicious EKG: Non-specific Age: 45-65 Risk factors: 1-2 risk factors Troponin: < normal limit HEART Score: 3 ED Review of Systems ROS: Stated complaint: CHEST PAIN Other details as noted in HPI Comment: All other systems reviewed and negative Constitutional: denies: fever, malaise Respiratory: shortness of breath Cardiovascular: chest pain, palpitations Gastrointestinal: denies: abdominal pain, nausea, vomiting ED Past Medical Hx - Past Medical History Previous Medical History?: Yes Hx Hypertension: Yes Hx Diabetes: Yes (borderline) Hx Psychiatric Treatment: Yes (Depression) Additional medical history: A-fib, - Surgical History Hx Cholecystectomy: Yes Hx Appendectomy: Yes Additional Surgical History: X 5, Hysterectomy - Family History Family history: hypertension - Social History Smoking Status: Current Every Day Smoker Substance Use Type: None - Medications Home Medications: Home Medications Medication Instructions Recorded Confirmed Last Taken Type Dicyclomine [Bentyl] 20 mg PO PRN 12/26/18 12/26/18 Unknown History Diphenoxylate/Atropine 2.5 mg PO PRN PRN 12/26/18 12/26/18 Unknown History Flecainide [Tambocor] 50 mg PO Q12H #60 tab 12/26/18 Unknown Rx Flecainide [Tambocor] 50 mg PO Q12HR #60 tab 12/26/18 Unknown Rx Folic Acid [Folvite] 1 mg PO DAILY #30 tab 12/26/18 Unknown Rx PARoxetine HCl [Paroxetine] 30 mg PO DAILY #30 tab 12/26/18 Unknown Rx Warfarin [Coumadin] 7.5 mg PO DAILY@1700 #30 tab 12/26/18 Unknown Rx dilTIAZem CD [Cardizem CD] 180 mg PO QDAY #30 capsule 12/26/18 Unknown Rx traZODone [Desyrel] 150 mg PO QHS #30 tab 12/26/18 Unknown Rx ED Physical Exam - General General appearance: alert, in no apparent distress, anxious, other (ambulatory from triage to treatment room) - Head Head exam: Present: atraumatic, normocephalic - Eye Eye exam: Present: normal appearance - ENT ENT exam: Present: mucous membranes moist - Neck Neck exam: Present: normal inspection, full ROM - Respiratory Respiratory exam: Present: normal lung sounds bilaterally. Absent: respiratory distress, wheezes, rales - Cardiovascular Cardiovascular Exam: Present: tachycardia, irregular rhythm, normal heart sounds. Absent: systolic murmur, diastolic murmur, rubs, gallop - GI/Abdominal GI/Abdominal exam: Present: soft, normal bowel sounds. Absent: distended, tenderness, guarding, rebound - Extremities Exam Extremities exam: Present: normal inspection - Neurological Exam Neurological exam: Present: alert, oriented X3 - Psychiatric Psychiatric exam: Present: normal affect, anxious - Skin Skin exam: Present: warm, dry, intact, normal color. Absent: rash ED Course Vital Signs 01/15/19 01/15/19 01/15/19 00:45 00:52 01:49 Temperature 98.5 F Pulse Rate 164 H 167 H 170 H Respiratory 18 Rate Blood Pressure 108/75 120/104 Blood Pressure 108/75 [Right] O2 Sat by Pulse 97 Oximetry 01/15/19 01:59 Temperature Pulse Rate 112 H Respiratory Rate Blood Pressure 121/104 Blood Pressure [Right] O2 Sat by Pulse Oximetry LB score - Lb Score Age > 65: (0) No Aspirin use within the Past 7 Days: (0) No 3 or more CAD Risk Factors: (0) No 2 or more Angina events in past 24 hrs: (0) No Known CAD with more than 50% Stenosis: (0) No Elevated Cardiac Markers: (0) No ST Deviation Greater than 0.5mm: (0) No LB Score: 0 ED Medical Decision Making - Lab Data Result diagrams: 01/15/19 00:50 01/15/19 00:50 Laboratory Results - last 24 hr 01/15/19 01/15/19 01/15/19 00:50 00:50 00:50 WBC 4.4 L RBC 3.37 L Hgb 12.5 Hct 36.3 MCV 108 H MCH 37 H MCHC 34 RDW 16.8 H Plt Count 153 Oliver % (Auto) All Terrain Vehicle Technician Seg Neutrophils % All Terrain Vehicle Technician PT 13.3 INR 1.02 APTT 25.2 Sodium 143 Potassium 3.3 L Chloride 103.4 Carbon Dioxide 18 L Anion Gap 25 BUN 7 Creatinine 0.4 L Estimated GFR > 60 BUN/Creatinine Ratio 18 Glucose 111 H Calcium 8.7 Magnesium 2.00 Total Bilirubin 0.40 AST 150 H ALT 64 H Alkaline Phosphatase 103 Troponin T < 0.010 Total Protein 7.4 Albumin 4.4 Albumin/Globulin Ratio 1.5 TSH 01/15/19 00:50 WBC RBC Hgb Hct MCV MCH MCHC RDW Plt Count Oliver % (Auto) Seg Neutrophils % PT INR APTT Sodium Potassium Chloride Carbon Dioxide Anion Gap BUN Creatinine Estimated GFR BUN/Creatinine Ratio Glucose Calcium Magnesium Total Bilirubin AST ALT Alkaline Phosphatase Troponin T Total Protein Albumin Albumin/Globulin Ratio TSH 2.750 - EKG Data 01/15/19 00:54 EKG obtained at 0017 Atrial fibrillation ventricular rate 170 beats a minute normal axis nonspecific ST pattern no ST elevation - Radiology Data Radiology results: report reviewed pcxr: No acute findings - Medical Decision Making Mrs. Chirinos presents with chest pain palpitations shortness of breath caused by atrial fibrillation with rapid ventricular response. I do not suspect cardiac ischemia or PE. According the EKG calculation ventricular rate 168 bpm. Has required two boluses of dilitiazem and infusion for rate control. Admitted to hospitalist service Labs notable for mild hypokalemia normal troponin Critical Care Time: Yes Critical care attestation.: If time is entered above; I have spent that time in minutes in the direct care of this critically ill patient, excluding procedure time. 40 minutes of critical care time excluding procedures were used in the care of the patient. Patient required multiple assessments and interventions. I reviewed the electronic medical record. I came to the bedside immediately upon patient's arrival. I obtain history from relative at the bedside as well as the patient. I directed resuscitation with the nurses at the bedside. I immedia tely ordered rate control with IV diltiazem. ED Disposition Clinical Impression: Atrial fibrillation with rapid ventricular response, Noncompliance with medication regimen Disposition: OP ADMIT IP TO THIS HOSP Is pt being admited?: Yes Does the pt Need Aspirin: No Condition: Stable
[2019-01-15] MEDS ORDERED: diphenhydrAMINE 50 MG/ML VIAL IV ONE (01:00)
[2019-01-15] MEDS ORDERED: diphenhydrAMINE 50 MG/ML VIAL ONE (01:01)
[2019-01-15 01:02] LABS: Hematocrit 36.3 % (30.3-42.9); Hemoglobin 12.5 gm/dl (10.1-14.3); Mean Corpuscular HGB Conc 34 % (30-34); Mean Corpuscular Volume 108 fl (79-97); Platelet Count 153 K/mm3 (140-440); Red Blood Count 3.37 M/mm3 (3.65-5.03); Red Cell Distribution Width 16.8 % (13.2-15.2)
--- NOTE | 2019-01-15 01:11 | XRay Report ---
CHEST 1 VIEW INDICATION: afib chest pain shortness of breath. COMPARISON: 12/26/2018. FINDINGS: Support devices: None. Heart: Within normal limits. Lungs/Pleura: No acute air space or interstitial disease. Additional findings: None. IMPRESSION: No acute abnormality. Signer Name: Ramesh Magana MD Signed: 01/15/2019 1:07 AM Workstation Name: [facility]
[2019-01-15 01:12] LABS: INR 1.02 (0.87-1.13)
[2019-01-15 01:13] LABS: Partial Thromboplastin Time 25.2 Sec. (24.2-36.6)
[2019-01-15 01:29] LABS: Alanine Aminotransferase 64 units/L (7-56); Albumin 4.4 g/dL (3.9-5); BUN/Creatinine Ratio 18; Blood Urea Nitrogen 7 mg/dL (7-17); Calcium 8.7 mg/dL (8.4-10.2); Hemolysis Index 19
[2019-01-15] MEDS: dilTIAZem/D5W 100 MG/100 ML BAG IV SCH ×2 (01:59→10:04)
--- NOTE | 2019-01-15 02:55 | History and Physical Report ---
History of Present Illness Date of examination: 01/15/19 History of present illness: 48 -year-old oriented a history of hypertension, diabetes, A. fib, asthma, depression comes emergency room with complains of palpitation that started when she came home from work. She complain of chest pain, shortness of breath. Pain is in the epigastric area which she described as someone sitting on her chest which has been constant, intensity 6/10, no radiation, cannot identify exacerbating factors. Denies nausea vomiting, diaphoresis. Her last stress test was years ago. Patient was discharged from the hospital, has not been on any medications. Patient was started on Cardizem drip in the emergency room review Of Systems: Constitutional: no weight loss, fever, chills Ears, eyes, nose, mouth and throat: no nasal congestion, no nasal discharge, no sinus pressure, blurry vision, diplopia Neck: No neck pain or rigidity. Cardiovascular: +palpitations Respiratory: No cough Gastrointestinal: No hematochezia, abdominal pain Genitourinary : no dysuria, frequency , hematuria Musculoskeletal: no muscle ache , joint pain Integumentary: no rash, no pruritis Neurological: no parathesias, focal weakness Endocrine: no cold or heat intolerance, no polyuria or polydipsia Hematologic/Lymphatic: no easy bruising, no easy bleeding, no gland swelling Allergic/Immunologic: no urticaria, no angioedema. PAST MEDICAL HISTORY:hypertension, diabetes, A. fib, asthma, depression PAST SURGICAL HISTORY: 6, hysterectomy, appendectomy, cholecystectomy FAMILY HISTORY:hypertension, diabetes SOCIAL HISTORY: Denies drugs, smokes half pack a day, drinks 6 packs a day Medications and Allergies Allergies Allergy/AdvReac Type Severity Reaction Status Date / Time No Known Allergies Allergy Verified 12/26/18 00:18 Home Medications Medication Instructions Recorded Confirmed Last Taken Type Dicyclomine [Bentyl] 20 mg PO PRN 12/26/18 12/26/18 Unknown History Diphenoxylate/Atropine 2.5 mg PO PRN PRN 12/26/18 12/26/18 Unknown History Flecainide [Tambocor] 50 mg PO Q12H #60 tab 12/26/18 Unknown Rx Flecainide [Tambocor] 50 mg PO Q12HR #60 tab 12/26/18 Unknown Rx Folic Acid [Folvite] 1 mg PO DAILY #30 tab 12/26/18 Unknown Rx PARoxetine HCl [Paroxetine] 30 mg PO DAILY #30 tab 12/26/18 Unknown Rx Warfarin [Coumadin] 7.5 mg PO DAILY@1700 #30 tab 12/26/18 Unknown Rx dilTIAZem CD [Cardizem CD] 180 mg PO QDAY #30 capsule 12/26/18 Unknown Rx traZODone [Desyrel] 150 mg PO QHS #30 tab 12/26/18 Unknown Rx Active Meds: Active Medications Diltiazem HCl (Cardizem/D5w 100mg/100ml) 100 mg in 100 mls @ 5 mls/hr IV TITR [facility]; Protocol Last Titration: 01/15/19 02:21 Dose: 10 mg/hr, 10 mls/hr Documented by: Exam - Physical Exam Narrative exam: General Apperance: The patient sitting in bed no acute distress HEENT: Normocephalic, atraumatic. Pupils equally round and reactive to light, extraocular movement intact, and no sclericterus or JVD or thyromegaly or nodule. Neck supple, no carotid bruit, mucous membranes moist, no exudate or e rythema Heart: S1-S2, irregular is rhythm Lungs: Clear to auscultation bilaterally, breathing comfortable Abdomen: Positive bowel sounds, soft, nontender, nondistended, no organomegaly Extremities: No edema cyanosis clubbing Skin: no rash, nodule, warm and dry Neuro:CN 2 -12 intact, motor/sensory intact, speech is fluent - Constitutional Vitals: Temp Pulse Resp BP Pulse Ox 98.5 F 112 H 18 121/104 97 01/15/19 00:45 01/15/19 01:59 01/15/19 00:45 01/15/19 01:59 01/15/19 00:45 Results - Labs CBC & Chem 7: 01/15/19 00:50 01/15/19 00:50 Labs: Abnormal lab results 01/15/19 01/15/19 Range/Units 00:50 00:50 WBC 4.4 L (4.5-11.0) K/mm3 RBC 3.37 L (3.65-5.03) M/mm3 MCV 108 H (79-97) fl MCH 37 H (28-32) pg RDW 16.8 H (13.2-15.2) % Potassium 3.3 L (3.6-5.0) mmol/L Carbon Dioxide 18 L (22-30) mmol/L Creatinine 0.4 L (0.7-1.2) mg/dL Glucose 111 H (65-100) mg/dL AST 150 H (5-40) units/L ALT 64 H (7-56) units/L - Imaging and Cardiology EKG: image reviewed Chest x-ray: image reviewed Assessment and Plan Assessment Afib with RVR DM type 2 hypokalemia Depression asthma Alcohol Abuse Plan: Continue cardizem drip, check cardiac enzymes, echo Consult cardiology, start full dose lovenox Stress Test once off Cardizem drip, replete potassium DVT prophylaxis, alcohol cessation discussed with patient
[2019-01-15] MEDS ORDERED: ACETAMINOPHEN 325 MG TAB PO PRN (03:13)
[2019-01-15] MEDS ORDERED: ONDANSETRON 4 MG/2 ML INJ IV PRN (03:13)
[2019-01-15 03:58] LABS: Basophils % (Manual) 0 % (0.0-1.8); Eosinophils % (Manual) 0 % (0.0-4.3); Total Cells Counted 100
[2019-01-15 03:59] LABS: Platelet Estimate Consistent w Auto; Stomatocytes Rare
[2019-01-15 04:00] LABS: Anisocytosis Few; Macrocytosis Rare
[2019-01-15] MEDS ORDERED: ENOXAPARIN 80 MG/0.8 ML INJ SUB-Q SCH (04:00)
[2019-01-15] MEDS ORDERED: POTASSIUM CHLORIDE ER 20 MEQ TAB PO ONE (04:00)
[2019-01-15] MEDS ORDERED: ENOXAPARIN 40 MG/0.4 ML INJ SUB-Q SCH (10:00)
[2019-01-15 10:10] LABS: Creatine Kinase MB 1.8 ng/mL (0.0-4.0)
[2019-01-15] MEDS ORDERED: FLECAINIDE 100 MG TAB PO SCH (11:00)
[2019-01-15] MEDS ORDERED: METOPROLOL TARTRATE 25 MG TAB PO SCH (11:00)
--- NOTE | 2019-01-15 13:04 | Consultation ---
<HANNAH GREENE - Last Filed: 01/15/19 13:06> History of Present Illness Consult date: 01/15/19 Consult reason: atrial fibrillation History of present illness: This is a 48-year-old woman with a history of hypertension and tobacco abuse. She also has a history of paroxysmal atrial fibrillation/flutter. Her latest cardiac workup was done 6 months ago at [facility]. She had a Lexiscan thallium stress test was normal and echocardiogram showed a normal left ventricular systolic function, ejection fraction 55%. Of note, patient was seen at this hospital 3-4 weeks ago with rapid atrial flutter that reverted with intravenous Diltiazem. Patient was discharged home on Diltiazem for suppression and Warfarin for oral anticoagulation. Patient returns with palpitations. ECG was rapid atrial fibrillation, ventricular rate 168. Patient reports she is not on any medications due to out of pocket cost and no insurance. In the emergency room she was treated with intravenous Cardizem, and has since reverted to a stable sinus rhythm. Currently, she denies chest pain, palpitations and unusual shortness of breath. Medications and Allergies Allergies Allergy/AdvReac Type Severity Reaction Status Date / Time No Known Allergies Allergy Verified 12/26/18 00:18 Home Medications Medication Instructions Recorded Confirmed Last Taken Type Dicyclomine [Bentyl] 20 mg PO PRN 12/26/18 12/26/18 Unknown History Diphenoxylate/Atropine 2.5 mg PO PRN PRN 12/26/18 12/26/18 Unknown History Flecainide [Tambocor] 50 mg PO Q12H #60 tab 12/26/18 Unknown Rx Flecainide [Tambocor] 50 mg PO Q12HR #60 tab 12/26/18 Unknown Rx Folic Acid [Folvite] 1 mg PO DAILY #30 tab 12/26/18 Unknown Rx PARoxetine HCl [Paroxetine] 30 mg PO DAILY #30 tab 12/26/18 Unknown Rx Warfarin [Coumadin] 7.5 mg PO DAILY@1700 #30 tab 12/26/18 Unknown Rx dilTIAZem CD [Cardizem CD] 180 mg PO QDAY #30 capsule 12/26/18 Unknown Rx traZODone [Desyrel] 150 mg PO QHS #30 tab 12/26/18 Unknown Rx Active Meds: Active Medications Acetaminophen (Tylenol) 650 mg PO Q4H PRN PRN Reason: Pain MILD(1-3)/Fever >100.5/COOMBS Enoxaparin Sodium (Enoxaparin) 70 mg SUB-Q Q12H [facility] Last Admin: 01/15/19 04:06 Dose: 70 mg Documented by: Flecainide Acetate (Tambocor) 50 mg PO Q12HR [facility] Last Admin: 01/15/19 11:19 Dose: 50 mg Documented by: Diltiazem HCl (Cardizem/D5w 100mg/100ml) 100 mg in 100 mls @ 5 mls/hr IV TITR [facility]; Protocol Last Titration: 01/15/19 11:46 Dose: 5 mg/hr, 5 mls/hr Documented by: Metoprolol Tartrate (Metoprolol) 25 mg PO BID [facility] Last Admin: 01/15/19 11:17 Dose: 25 mg Documented by: Ondansetron HCl (Zofran) 4 mg IV Q8H PRN PRN Reason: Nausea And Vomiting Sodium Chloride (Sodium Chloride Flush Syringe 10 Ml) 10 ml IV BID [facility] Sodium Chloride (Sodium Chloride Flush Syringe 10 Ml) 10 ml IV PRN PRN PRN Reason: LINE FLUSH Physical Examination Vital Signs Temp Pulse Resp BP Pulse Ox 98.3 F 164 H 18 108/75 18 L 01/15/19 00:45 01/15/19 00:45 01/15/19 00:45 01/15/19 00:45 01/15/19 00:45 General appearance: no acute distress HEENT: Positive: PERRL Neck: Positive: trachea midline Cardiac: Positive: Reg Rate and Rhythm Lungs: Positive: Normal Breath Sounds Neuro: Positive: Grossly Intact Extremities: Absent: edema Results 01/15/19 00:50 01/15/19 00:50 Cardiac Enzymes 01/15/19 01/15/19 01/15/19 Range/Units 00:50 03:36 09:28 AST 150 H (5-40) units/L CK-MB (CK-2) 2.0 1.8 (0.0-4.0) ng/mL Coagulation 01/15/19 Range/Units 00:50 PT 13.3 (12.2-14.9) Sec. INR 1.02 (0.87-1.13) APTT 25.2 (24.2-36.6) Sec. CBC 01/15/19 Range/Units 00:50 WBC 4.4 L (4.5-11.0) K/mm3 RBC 3.37 L (3.65-5.03) M/mm3 Hgb 12.5 (10.1-14.3) gm/dl Hct 36.3 (30.3-42.9) % Plt Count 153 (140-440) K/mm3 Comprehensive Metabolic Panel 01/15/19 Range/Units 00:50 Sodium 143 (137-145) mmol/L Potassium 3.3 L (3.6-5.0) mmol/L Chloride 103.4 (98-107) mmol/L Carbon Dioxide 18 L (22-30) mmol/L BUN 7 (7-17) mg/dL Creatinine 0.4 L (0.7-1.2) mg/dL Glucose 111 H (65-100) mg/dL Calcium 8.7 (8.4-10.2) mg/dL AST 150 H (5-40) units/L ALT 64 H (7-56) units/L Alkaline Phosphatase 103 (35-129) units/L Total Protein 7.4 (6.3-8.2) g/dL Albumin 4.4 (3.9-5) g/dL Assessment and Plan Paroxysmal atrial fib/flutter reverted to sinus rhythm on IV diltiazem normal MPI 02/2018 at [facility] normal LVEF 55% done at [facility] 02/2018 Hypertension Noncompliant with medications Recommend: Discontinue IV diltiazem. We will instead resume Flecanide and metoprolol, as this is more affordable for the patient, for suppression of paroxysmal atrial fibrillation. Stable cardiac [place], for discharge home today. <SALOME CARDENAS - Last Filed: 01/18/19 10:32> Physical Examination Vital Signs Temp Pulse Resp BP Pulse Ox 98.3 F 164 H 18 108/75 18 L 01/15/19 00:45 01/15/19 00:45 01/15/19 00:45 01/15/19 00:45 01/15/19 00:45 Results 01/15/19 00:50 01/15/19 00:50 Assessment and Plan I seen and evaluated the patient agree with the assessment and plan. Patient presenting with paroxysmal atrial fibrillation, and hypertension. Patient is noncompliant with her medical therapy pain. Patient does have a normal stress t est done at [facility] in February 2018. Therefore we'll can be able to continue the patient on flecainide and metoprolol for rhythm control strategy with respect to her atrial fibrillation.
[2019-01-15 13:53] VITALS: BP 117/83
--- NOTE | 2019-01-15 15:30 | Discharge Summary ---
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 She also received K supplements for hypokalemia. Subsequent plan was to monitor the pt after the drip was d/maciej as well as recheck her electrolyte levels. However, she left AMA despite adequate education. She understood the implications of his decision. Disposition: DC-07 LEFT AGAINST MED ADVICE Time spent for discharge: 30 minutes Core Measure Documentation - Palliative Care Palliative Care/ Comfort Measures: Not Applicable - Core Measures Any of the following diagnoses?: none Exam - Physical Exam Narrative exam: pls, see h/p done today - Constitutional Vitals: Temp Pulse Resp BP Pulse Ox 98.5 F 90 20 117/83 97 01/15/19 00:45 01/15/19 13:52 01/15/19 13:52 01/15/19 13:52 01/15/19 13:52 Plan Follow up with: LUIS ALBERTO ALICEA MD [Primary Care Provider] - 3-5 Days Forms: Work/School Release Form(ED)
== END 2019-01-15 14:41 | disposition left against medical advice (07) | DRG 310 ==
LOC: ED 00:12 → CC1 02:54
PROVIDERS: ADMIT Internal Medicine; ATTEND Internal Medicine
DX: I48.0 Paroxysmal atrial fibrillation (principal); E11.9 Type 2 diabetes mellitus without complications; E87.6 Hypokalemia; F32.9 Major depressive disorder, single episode, unspecified; J45.909 Unspecified asthma, uncomplicated; F10.10 Alcohol abuse, uncomplicated; I10 Essential (primary) hypertension; I48.92 Unspecified atrial flutter; F17.200 Nicotine dependence, unspecified, uncomplicated; Z79.899 Other long term (current) drug therapy; Z91.14 Patient's other noncompliance with medication regimen; Z90.49 Acquired absence of other specified parts of digestive tract; Z90.710 Acquired absence of both cervix and uterus; Z82.49 Family history of ischemic heart disease and other diseases of the circulatory system; Z83.3 Family history of diabetes mellitus
CPT/HCPCS: 36415; 71045; 80053; 82550; 82553; 83735; 83880; 84443; 84484; 85007; 85025; 85610; 85730; 93005; 93010; G0378; J1200; J1650

== ENCOUNTER 2019-03-20 01:44 | Emergency (ER) | payer SELFPAY ==
--- NOTE | 2019-03-20 02:30 | XRay Report ---
CHEST 1 VIEW INDICATION: Chest Pain. COMPARISON: 02/24/2019 FINDINGS: Support devices: None. Heart: Normal. Lungs/Pleura: No acute pulmonary or pleural findings. IMPRESSION: 1. No acute findings. Signer Name: Neto Pollard MD Signed: 03/20/2019 2:25 AM Workstation Name: [id number]
[2019-03-20 02:50] LABS: Hematocrit 38.2 % (30.3-42.9); Hemoglobin 13.2 gm/dl (10.1-14.3); Mean Corpuscular HGB Conc 35 % (30-34); Mean Corpuscular Volume 105 fl (79-97); Platelet Count 156 K/mm3 (140-440); Red Blood Count 3.64 M/mm3 (3.65-5.03); Red Cell Distribution Width 15.9 % (13.2-15.2)
[2019-03-20 03:37] LABS: BUN/Creatinine Ratio 13; Blood Urea Nitrogen 5 mg/dL (7-17); Calcium 9.1 mg/dL (8.4-10.2); Hemolysis Index 14
[2019-03-20 04:22] LABS: Basophils % (Manual) 0 % (0.0-1.8); Monocytes % (Manual) 0 % (0.0-7.3); Total Cells Counted 100
[2019-03-20 04:23] LABS: Schistocytes Rare; Target Cells Few
[2019-03-20 04:25] LABS: Platelet Estimate Consistent w Auto
== END 2019-03-20 02:35 | disposition left against medical advice (07) ==
LOC: ED 01:44
DX: R07.89 Other chest pain (principal); Z53.21 Procedure and treatment not carried out due to patient leaving prior to being seen by health care provider
CPT/HCPCS: 36415; 71045; 80048; 84484; 85007; 85025; 93005; 93010

== ENCOUNTER 2019-03-28 00:14 | Emergency (ER) | payer SELFPAY ==
--- NOTE | 2019-03-28 01:07 | Emergency Department Report ---
ED General Adult HPI - General Chief complaint: Arrhythmia/Palpitations Stated complaint: AFIB Time Seen by Provider: 03/28/19 00:46 Source: patient, EMS Mode of arrival: Stretcher Limitations: No Limitations - History of Present Illness Initial comments: Patient presents to the emergency Department chief complaint of heart palpitations and chest discomfort. Patient states she woke up out of her sleep with chest tightness and her heart beating fast. Patient states she has a history of atrial fibrillation and is not on all her medications for it. He should states that she is only on one of her medications for A. fib but states that she is out of metoprolol and acid reflux medication. Patient states currently she no longer has chest pain worse shortness of breath. -: Sudden Location: chest Severity scale (0 -10): 2 Quality: dull Consistency: now resolved Worsens with: none Associated Symptoms: denies other symptoms Treatments Prior to Arrival: none - Related Data Home Medications Medication Instructions Recorded Confirmed Last Taken Dicyclomine [Bentyl] 20 mg PO PRN 12/26/18 12/26/18 Unknown Diphenoxylate/Atropine 2.5 mg PO PRN PRN 12/26/18 12/26/18 Unknown Previous Rx's Medication Instructions Recorded Last Taken Type Flecainide [Tambocor] 50 mg PO Q12H #60 tab 12/26/18 Unknown Rx Flecainide [Tambocor] 50 mg PO Q12HR #60 tab 12/26/18 Unknown Rx Folic Acid [Folvite] 1 mg PO DAILY #30 tab 12/26/18 Unknown Rx PARoxetine HCl [Paroxetine] 30 mg PO DAILY #30 tab 12/26/18 Unknown Rx Warfarin [Coumadin] 7.5 mg PO DAILY@1700 #30 tab 12/26/18 Unknown Rx dilTIAZem CD [Cardizem CD] 180 mg PO QDAY #30 capsule 12/26/18 Unknown Rx traZODone [Desyrel] 150 mg PO QHS #30 tab 12/26/18 Unknown Rx Albuterol Sulfate [Proventil Hfa] 2 puff IH Q4HR PRN #1 hfa.aer.ad 02/24/19 Unknown Rx Famotidine [Pepcid] 40 mg PO QHS #30 tablet 03/28/19 Unknown Rx Metoprolol [Lopressor TAB] 25 mg PO BID #60 tablet 03/28/19 Unknown Rx Allergies Allergy/AdvReac Type Severity Reaction Status Date / Time No Known Allergies Allergy Verified 12/26/18 00:18 ED Review of Systems ROS: Stated complaint: AFIB Other details as noted in HPI Comment: All other systems reviewed and negative Constitutional: denies: chills, fever Eyes: denies: eye pain, eye discharge, vision change ENT: denies: ear pain, throat pain Respiratory: denies: cough, shortness of breath, wheezing Cardiovascular: denies: chest pain, palpitations Endocrine: no symptoms reported Gastrointestinal: denies: abdominal pain, nausea, diarrhea Genitourinary: denies: urgency, dysuria, discharge Musculoskeletal: denies: back pain, joint swelling, arthralgia Skin: denies: rash, lesions Neurological: denies: headache, weakness, paresthesias Psychiatric: denies: anxiety, depression Hematological/Lymphatic: denies: easy bleeding, easy bruising ED Past Medical Hx - Past Medical History Hx Hypertension: Yes Hx Diabetes: Yes (borderline) Hx Psychiatric Treatment: Yes (Depression) Additional medical history: A-fib - Surgical History Hx Cholecystectomy: Yes Hx Appendectomy: Yes Additional Surgical History: X 5, Hysterectomy - Social History Smoking Status: Current Every Day Smoker Substance Use Type: Alcohol - Medications Home Medications: Home Medications Medication Instructions Recorded Confirmed Last Taken Type Dicyclomine [Bentyl] 20 mg PO PRN 12/26/18 12/26/18 Unknown History Diphenoxylate/Atropine 2.5 mg PO PRN PRN 12/26/18 12/26/18 Unknown History Flecainide [Tambocor] 50 mg PO Q12H #60 tab 12/26/18 Unknown Rx Flecainide [Tambocor] 50 mg PO Q12HR #60 tab 12/26/18 Unknown Rx Folic Acid [Folvite] 1 mg PO DAILY #30 tab 12/26/18 Unknown Rx PARoxetine HCl [Paroxetine] 30 mg PO DAILY #30 tab 12/26/18 Unknown Rx Warfarin [Coumadin] 7.5 mg PO DAILY@1700 #30 tab 12/26/18 Unknown Rx dilTIAZem CD [Cardizem CD] 180 mg PO QDAY #30 capsule 12/26/18 Unknown Rx traZODone [Desyrel] 150 mg PO QHS #30 tab 12/26/18 Unknown Rx Albuterol Sulfate [Proventil Hfa] 2 puff IH Q4HR PRN #1 hfa.aer.ad 02/24/19 Unknown Rx Famotidine [Pepcid] 40 mg PO QHS #30 tablet 03/28/19 Unknown Rx Metoprolol [Lopressor TAB] 25 mg PO BID #60 tablet 03/28/19 Unknown Rx ED Physical Exam - General Limitations: No Limitations General appearance: alert, in no apparent distress - Head Head exam: Present: atraumatic, normocephalic - Eye Eye exam: Present: normal appearance, PERRL, EOMI - ENT ENT exam: Present: mucous membranes moist - Neck Neck exam: Present: normal inspection - Respiratory Respiratory exam: Present: normal lung sounds bilaterally. Absent: respiratory distress - Cardiovascular Cardiovascular Exam: Present: regular rate, normal rhythm. Absent: systolic murmur, diastolic murmur, rubs, gallop - GI/Abdominal GI/Abdominal exam: Present: soft, normal bowel sounds. Absent: distended, tenderness - Extremities Exam Extremities exam: Present: normal inspection - Back Exam Back exam: Present: normal inspection - Neurological Exam Neurological exam: Present: alert, oriented X3, CN II-XII intact. Absent: motor sensory deficit - Psychiatric Psychiatric exam: Present: normal affect, normal mood - Skin Skin exam: Present: warm, dry, intact, normal color. 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 INR (0.87-1.13) APTT (24.2-36.6) Sec. Sodium (137-145) mmol/L Potassium (3.6-5.0) mmol/L Chloride (98-107) mmol/L Carbon Dioxide (22-30) mmol/L Anion Gap mmol/L BUN (7-17) mg/dL Creatinine (0.7-1.2) mg/dL Estimated GFR ml/min BUN/Creatinine Ratio % Glucose (65-100) mg/dL Calcium (8.4-10.2) mg/dL Magnesium (1.7-2.3) mg/dL Total Bilirubin (0.1-1.2) mg/dL AST (5-40) units/L ALT (7-56) units/L Alkaline Phosphatase (35-129) units/L Troponin T (0.00-0.029) ng/mL Total Protein (6.3-8.2) g/dL Albumin (3.9-5) g/dL Albumin/Globulin Ratio % TSH (0.270-4.200) mlU/mL Thyroxine (T4) (4.0-12.0) ug/dL Urine Color Straw (Yellow) Urine Turbidity Clear (Clear) Urine pH 6.0 (5.0-7.0) Ur Specific [place] 1.004 (1.003-1.030) Urine Protein <15 mg/dl (Negative) mg/dL Urine Glucose (UA) Neg (Negative) mg/dL Urine Ketones Neg (Negative) mg/dL Urine Blood Neg (Negative) Urine Nitrite Neg (Negative) Urine Bilirubin Neg (Negative) Urine Urobilinogen < 2.0 (<2.0) mg/dL Ur Leukocyte Esterase Neg (Negative) Urine WBC (Auto) Not Reportable Urine RBC (Auto) 2.0 (0.0-6.0) /HPF Hyaline Casts 1 /LPF Urine Opiates Screen Presumptive negative Urine Methadone Screen Presumptive negative Ur Barbiturates Screen Presumptive negative Ur Phencyclidine Scrn Presumptive negative Ur Amphetamines Screen Presumptive negative U Benzodiazepines Scrn Presumptive negative Urine Cocaine Screen Presumptive negative U Marijuana (THC) Screen Presumptive negative Drugs of Abuse Note Disclamer Plasma/Serum Alcohol (0-0.07) % 03/28/19 03/28/19 03/28/19 Range/Units 01:11 01:11 01:11 WBC (4.5-11.0) K/mm3 RBC (3.65-5.03) M/mm3 Hgb (10.1-14.3) gm/dl Hct (30.3-42.9) % MCV (79-97) fl MCH (28-32) pg MCHC (30-34) % RDW (13.2-15.2) % Plt Count (140-440) K/mm3 Lymph % (Auto) PT 14.0 (12.2-14.9) Sec. INR 1.07 (0.87-1.13) APTT 26.9 (24.2-36.6) Sec. Sodium 141 (137-145) mmol/L Potassium 3.1 L (3.6-5.0) mmol/L Chloride 104.2 (98-107) mmol/L Carbon Dioxide 23 (22-30) mmol/L Anion Gap 17 mmol/L BUN 9 (7-17) mg/dL Creatinine 0.4 L (0.7-1.2) mg/dL Estimated GFR > 60 ml/min BUN/Creatinine Ratio 23 % Glucose 108 H (65-100) mg/dL Calcium 8.1 L (8.4-10.2) mg/dL Magnesium 1.90 (1.7-2.3) mg/dL Total Bilirubin 0.50 (0.1-1.2) mg/dL AST 56 H (5-40) units/L ALT 30 (7-56) units/L Alkaline Phosphatase 85 (35-129) units/L Troponin T (0.00-0.029) ng/mL Total Protein 6.2 L (6.3-8.2) g/dL Albumin 3.8 L (3.9-5) g/dL Albumin/Globulin Ratio 1.6 % TSH (0.270-4.200) mlU/mL Thyroxine (T4) 6.1 (4.0-12.0) ug/dL Urine Color (Yellow) Urine Turbidity (Clear) Urine pH (5.0-7.0) Ur Specific [place] (1.003-1.030) Urine Protein (Negative) mg/dL Urine Glucose (UA) (Negative) mg/dL Urine Ketones (Negative) mg/dL Urine Blood (Negative) Urine Nitrite (Negative) Urine Bilirubin (Negative) Urine Urobilinogen (<2.0) mg/dL Ur Leukocyte Esterase (Negative) Urine WBC (Auto) Urine RBC (Auto) (0.0-6.0) /HPF Hyaline Casts /LPF Urine Opiates Screen Urine Methadone Screen Ur Barbiturates Screen Ur Phencyclidine Scrn Ur Amphetamines Screen U Benzodiazepines Scrn Urine Cocaine Screen U Marijuana (THC) Screen Drugs of Abuse Note Plasma/Serum Alcohol (0-0.07) % 03/28/19 03/28/19 03/28/19 Range/Units 01:11 01:11 01:11 WBC (4.5-11.0) K/mm3 RBC (3.65-5.03) M/mm3 Hgb (10.1-14.3) gm/dl Hct (30.3-42.9) % MCV (79-97) fl MCH (28-32) pg MCHC (30-34) % RDW (13.2-15.2) % Plt Count (140-440) K/mm3 Lymph % (Auto) PT (12.2-14.9) Sec. INR (0.87-1.13) APTT (24.2-36.6) Sec. Sodium (137-145) mmol/L Potassium (3.6-5.0) mmol/L Chloride (98-107) mmol/L Carbon Dioxide (22-30) mmol/L Anion Gap mmol/L BUN (7-17) mg/dL Creatinine (0.7-1.2) mg/dL Estimated GFR ml/min BUN/Creatinine Ratio % Glucose (65-100) mg/dL Calcium (8.4-10.2) mg/dL Magnesium (1.7-2.3) mg/dL Total Bilirubin (0.1-1.2) mg/dL AST (5-40) units/L ALT (7-56) units/L Alkaline Phosphatase (35-129) units/L Troponin T < 0.010 (0.00-0.029) ng/mL Total Protein (6.3-8.2) g/dL Albumin (3.9-5) g/dL Albumin/Globulin Ratio % TSH 0.664 (0.270-4.200) mlU/mL Thyroxine (T4) (4.0-12.0) ug/dL Urine Color (Yellow) Urine Turbidity (Clear) Urine pH (5.0-7.0) Ur Specific [place] (1.003-1.030) Urine Protein (Negative) mg/dL Urine Glucose (UA) (Negative) mg/dL Urine Ketones (Negative) mg/dL Urine Blood (Negative) Urine Nitrite (Negative) Urine Bilirubin (Negative) Urine Urobilinogen (<2.0) mg/dL Ur Leukocyte Esterase (Negative) Urine WBC (Auto) Urine RBC (Auto) (0.0-6.0) /HPF Hyaline Casts /LPF Urine Opiates Screen Urine Methadone Screen Ur Barbiturates Screen Ur Phencyclidine Scrn Ur Amphetamines Screen U Benzodiazepines Scrn Urine Cocaine Screen U Marijuana (THC) Screen Drugs of Abuse Note Plasma/Serum Alcohol 0.18 H (0-0.07) % - EKG Data -: EKG Interpreted by Me EKG shows normal: sinus rhythm Rate: normal - Radiology Data Radiology results: report reviewed - Medical Decision Making Initial EKG received by EMS shows A. fib with RVR EKG done in the ED shows normal sinus rhythm with a rate of 88 Patient states that she normally takes metoprolol 25 mg twice a day but has been out for quite some time to lie Critical care attestation.: If time is entered above; I have spent that time in minutes in the direct care of this critically ill patient, excluding procedure time. ED Disposition Clinical Impression: Palpitations, Afib, Alcohol intoxication Disposition: DC-01 TO HOME OR SELFCARE Is pt being admited?: No Does the pt Need Aspirin: No Condition: Stable Instructions: Palpitations (ED), Atrial Fibrillation (ED), Alcohol Intoxication (ED) Additional Instructions: return if worse Prescriptions: Famotidine [Pepcid] 40 mg PO QHS #30 tablet Metoprolol [Lopressor TAB] 25 mg PO BID #60 tablet Referrals: [facility] [Provider Group] - 3-5 Days [facility] [Provider Group] - 3-5 Days [facility] [Outside] - 3-5 Days Time of Disposition: 03:09
--- NOTE | 2019-03-28 01:28 | XRay Report ---
CHEST 1 VIEW INDICATION / CLINICAL INFORMATION: afib. COMPARISON: 03/20/2019 FINDINGS: SUPPORT DEVICES: None. HEART / MEDIASTINUM: No significant abnormality. LUNGS / PLEURA: No significant pulmonary or pleural abnormality.. No pneumothorax. ADDITIONAL FINDINGS: No significant additional findings. IMPRESSION: 1. No acute findings. Signer Name: Wood Cuadra MD Signed: 03/28/2019 1:23 AM Workstation Name: [id number]
[2019-03-28 01:32] LABS: Hematocrit 28.1 % (30.3-42.9); Hemoglobin 9.9 gm/dl (10.1-14.3); Mean Corpuscular HGB Conc 35 % (30-34); Mean Corpuscular Volume 107 fl (79-97); Platelet Count 144 K/mm3 (140-440); Red Blood Count 2.64 M/mm3 (3.65-5.03); Red Cell Distribution Width 16.3 % (13.2-15.2)
[2019-03-28 01:43] LABS: INR 1.07 (0.87-1.13)
[2019-03-28 01:44] LABS: Partial Thromboplastin Time 26.9 Sec. (24.2-36.6)
[2019-03-28 01:47] LABS: Amphetamine Screen,Urine PRESUMPTIVE NEGATIVE; Benzodiazepines Screen,Urine PRESUMPTIVE NEGATIVE; Cannabinoid Screen,Urine PRESUMPTIVE NEGATIVE; Cocaine Screen,Urine PRESUMPTIVE NEGATIVE; Methadone Screen,Urine PRESUMPTIVE NEGATIVE; Opiate Screen,Urine PRESUMPTIVE NEGATIVE
[2019-03-28 01:50] LABS: Bilirubin,Urine NEG (Negative); Blood,Urine NEG (Negative); Color,Urine Straw (Yellow); Hyaline Casts,Urine 1 /LPF; Protein,Urine <15 mg/dL mg/dL (Negative); Urobilinogen,Urine < 2.0 mg/dL (<2.0)
[2019-03-28 01:51] LABS: Alanine Aminotransferase 30 units/L (7-56); Albumin 3.8 g/dL (3.9-5); BUN/Creatinine Ratio 23; Blood Urea Nitrogen 9 mg/dL (7-17); Calcium 8.1 mg/dL (8.4-10.2); Hemolysis Index 6
[2019-03-28 04:25] LABS: Basophils % (Manual) 0 % (0.0-1.8); Eosinophils % (Manual) 0 % (0.0-4.3); Total Cells Counted 100
[2019-03-28 04:26] LABS: Platelet Estimate Consistent w Auto; Target Cells Rare
[2019-03-28 04:37] VITALS: BP 144/89
== END 2019-03-28 03:31 | disposition home or self-care (01) ==
LOC: ED 00:14
DX: I48.91 Unspecified atrial fibrillation (principal); F10.129 Alcohol abuse with intoxication, unspecified; I10 Essential (primary) hypertension; F32.9 Major depressive disorder, single episode, unspecified; F17.200 Nicotine dependence, unspecified, uncomplicated
CPT/HCPCS: 36415; 71045; 80053; 80307; 80320; 81001; 83735; 84436; 84443; 84484; 85007; 85025; 85610; 85730; 93005; 93010; 99284; G0480

== ENCOUNTER 2019-04-10 11:31 | Emergency (ER) | payer SELFPAY ==
[2019-04-10 11:40] VITALS: BP 135/96
--- NOTE | 2019-04-10 12:29 | XRay Report ---
RIGHT RIBS, PA CHEST RADIOGRAPH HISTORY: Right sided chest pain for 3 days. COMPARISON: None. TECHNIQUE: 2 views of the right ribs were obtained. Single view of the chest also obtained. FINDINGS: Right Ribs: Bones: No fracture or dislocation. Joint spaces: Maintained. Soft tissues: No significant abnormality. Chest: Cardiomediastinal silhouette: Normal cardiac size. Normal mediastinal contours. Lungs: Normal expansion. Normal lung aeration. No pleural effusions. No pneumothorax. Pulmonary vascularity: Normal. Additional findings: None. IMPRESSION: 1. No significant abnormality. Signer Name: Gerald Hein MD Signed: 04/10/2019 12:25 PM Workstation Name: [id number]
--- NOTE | 2019-04-10 12:38 | Emergency Department Report ---
ED General Adult HPI - General Chief complaint: Pain General Stated complaint: SOB/PAIN ON (R)SIDE Time Seen by Provider: 04/10/19 12:07 Source: patient Mode of arrival: Ambulatory Limitations: No Limitations - History of Present Illness Initial comments: Patient is a 48-year-old F Latvian female who is complaining of right-sided rib pain. Patient states approximately 3 days ago she was lifting something heavy in her kitchen. Patient states while lifting she felt a pop in her right side. States she did stumble but did not fall to the ground. Patient states she has severe pain in the mid lateral ribs when she moves and takes a deep breath. She has point tenderness. Patient states there is pain when she coughs. She does have a history of diabetes hypertension atrial fibrillation and COPD. Patient's cough is nonproductive. - Related Data Home Medications Medication Instructions Recorded Confirmed Last Taken Dicyclomine [Bentyl] 20 mg PO PRN 12/26/18 12/26/18 Unknown Diphenoxylate/Atropine 2.5 mg PO PRN PRN 12/26/18 12/26/18 Unknown Previous Rx's Medication Instructions Recorded Last Taken Type Flecainide [Tambocor] 50 mg PO Q12H #60 tab 12/26/18 Unknown Rx Flecainide [Tambocor] 50 mg PO Q12HR #60 tab 12/26/18 Unknown Rx Folic Acid [Folvite] 1 mg PO DAILY #30 tab 12/26/18 Unknown Rx PARoxetine HCl [Paroxetine] 30 mg PO DAILY #30 tab 12/26/18 Unknown Rx Warfarin [Coumadin] 7.5 mg PO DAILY@1700 #30 tab 12/26/18 Unknown Rx dilTIAZem CD [Cardizem CD] 180 mg PO QDAY #30 capsule 12/26/18 Unknown Rx traZODone [Desyrel] 150 mg PO QHS #30 tab 12/26/18 Unknown Rx Albuterol Sulfate [Proventil Hfa] 2 puff IH Q4HR PRN #1 hfa.aer.ad 02/24/19 Unk nown Rx Famotidine [Pepcid] 40 mg PO QHS #30 tablet 03/28/19 Unknown Rx Metoprolol [Lopressor TAB] 25 mg PO BID #60 tablet 03/28/19 Unknown Rx Ibuprofen [Motrin 600 MG tab] 600 mg PO Q8H PRN #10 tablet 04/10/19 Unknown Rx methOCARBAMOL [Robaxin TAB] 500 mg PO Q6H PRN #14 tablet 04/10/19 Unknown Rx traMADoL [Ultram] 50 mg PO Q6HR PRN #12 tablet 04/10/19 Unknown Rx Allergies Allergy/AdvReac Type Severity Reaction Status Date / Time No Known Allergies Allergy Verified 12/26/18 00:18 ED Review of Systems ROS: Stated complaint: SOB/PAIN ON (R)SIDE Other details as noted in HPI Comment: All other systems reviewed and negative ED Past Medical Hx - Past Medical History Previous Medical History?: Yes Hx Hypertension: Yes Hx Diabetes: Yes (borderline) Hx Psychiatric Treatment: Yes (Depression) Additional medical history: A-fib - Surgical History Hx Cholecystectomy: Yes Hx Appendectomy: Yes Additional Surgical History: X 5, Hysterectomy. right hand surgery x 2 - Social History Smoking Status: Current Every Day Smoker Substance Use Type: Alcohol - Medications Home Medications: Home Medications Medication Instructions Recorded Confirmed Last Taken Type Dicyclomine [Bentyl] 20 mg PO PRN 12/26/18 12/26/18 Unknown History Diphenoxylate/Atropine 2.5 mg PO PRN PRN 12/26/18 12/26/18 Unknown History Flecainide [Tambocor] 50 mg PO Q12H #60 tab 12/26/18 Unknown Rx Flecainide [Tambocor] 50 mg PO Q12HR #60 tab 12/26/18 Unknown Rx Folic Acid [Folvite] 1 mg PO DAILY #30 tab 12/26/18 Unknown Rx PARoxetine HCl [Paroxetine] 30 mg PO DAILY #30 tab 12/26/18 Unknown Rx Warfarin [Coumadin] 7.5 mg PO DAILY@1700 #30 tab 12/26/18 Unknown Rx dilTIAZem CD [Cardizem CD] 180 mg PO QDAY #30 capsule 12/26/18 Unknown Rx traZODone [Desyrel] 150 mg PO QHS #30 tab 12/26/18 Unknown Rx Albuterol Sulfate [Proventil Hfa] 2 puff IH Q4HR PRN #1 hfa.aer.ad 02/24/19 Unknown Rx Famotidine [Pepcid] 40 mg PO QHS #30 tablet 03/28/19 Unknown Rx Metoprolol [Lopressor TAB] 25 mg PO BID #60 tablet 03/28/19 Unknown Rx Ibuprofen [Motrin 600 MG tab] 600 mg PO Q8H PRN #10 tablet 04/10/19 Unknown Rx methOCARBAMOL [Robaxin TAB] 500 mg PO Q6H PRN #14 tablet 04/10/19 Unknown Rx traMADoL [Ultram] 50 mg PO Q6HR PRN #12 tablet 04/10/19 Unknown Rx ED Physical Exam - General Limitations: No Limitations General appearance: alert, in no apparent distress - Head Head exam: Present: atraumatic, normocephalic - Eye Eye exam: Present: normal appearance, PERRL, EOMI - ENT ENT exam: Present: mucous membranes moist - Neck Neck exam: Present: normal inspection - Respiratory Respiratory exam: Present: normal lung sounds bilaterally, chest wall tenderness (Right lateral mid ribs). Absent: respiratory distress, wheezes, rales, rhonchi - Cardiovascular Cardiovascular Exam: Present: regular rate, normal rhythm. Absent: systolic murmur, diastolic murmur, rubs, gallop - GI/Abdominal GI/Abdominal exam: Present: soft, normal bowel sounds - Extremities Exam Extremities exam: Present: normal inspection - Back Exam Back exam: Present: normal inspection - Neurological Exam Neurological exam: Present: alert, oriented X3 - Psychiatric Psychiatric exam: Present: normal affect, normal mood - Skin Skin exam: Present: warm, dry, intact, normal color. Absent: rash ED Course Vital Signs 04/10/19 11:38 Temperature 98.2 F Pulse Rate 84 Respiratory 20 Rate Blood Pressure 135/96 O2 Sat by Pulse 100 Oximetry ED Medical Decision Making - Medical Decision Making X-ray with rib details was ordered to rule out spontaneous pneumothorax and pathological fracture of the ribs. Patient is a smoker and is was initially unknown whether the patient had any lung mass or cancer. X-ray of the left ribs showed no acute fracture. Patient likely with tear in the muscles of the intercostal space. Patient will be given medication for symptomatic relief and discharged home. Critical care attestation.: If time is entered above; I have spent that time in minutes in the direct care of this critically ill patient, excluding procedure time. ED Disposition Clinical Impression: Intercostal muscle tear Qualifiers: Encounter type: initial encounter Qualified Code(s): S29.019A - Strain of muscle and tendon of unspecified wall of thorax, initial encounter Disposition: - TO HOME OR SELFCARE Is pt being admited?: No Does the pt Need Aspirin: No Condition: Stable Instructions: Musculoskeletal Pain (ED) Referrals: PRIMARY CARE, [Referring] - 3-5 Days Time of Disposition: 12:38
== END 2019-04-10 12:49 | disposition home or self-care (01) ==
LOC: ED 11:31
DX: S29.011A Strain of muscle and tendon of front wall of thorax, initial encounter (principal); I10 Essential (primary) hypertension; E11.9 Type 2 diabetes mellitus without complications; F32.9 Major depressive disorder, single episode, unspecified; F17.200 Nicotine dependence, unspecified, uncomplicated; Z79.1 Long term (current) use of non-steroidal anti-inflammatories (NSAID); Z79.899 Other long term (current) drug therapy; Z98.890 Other specified postprocedural states; Z90.710 Acquired absence of both cervix and uterus; Z90.49 Acquired absence of other specified parts of digestive tract; X50.9XXA Other and unspecified overexertion or strenuous movements or postures, initial encounter; Y93.89 Activity, other specified; Y92.89 Other specified places as the place of occurrence of the external cause; Y99.8 Other external cause status

== ENCOUNTER 2019-08-15 18:14 | Observation (INO) | payer SELFPAY ==
[2019-08-15] MEDS ORDERED: SODIUM CHLORIDE 0.9% 1000 ML 1,000 ML IV ONE (19:20)
[2019-08-15 19:35] LABS: Basophils % (Auto) 0.3 % (0.0-1.8); Eosinophils % (Auto) 0.2 % (0.0-4.3); Hematocrit 29.4 % (30.3-42.9); Hemoglobin 10.4 gm/dl (10.1-14.3); Lymphocytes # (Auto) 1.3 K/mm3 (1.2-5.4); Lymphocytes % (Auto) 53.8 % (13.4-35.0); Mean Corpuscular HGB Conc 35 % (30-34); Mean Corpuscular Volume 115 fl (79-97); Monocytes # (Auto) 0.2 K/mm3 (0.0-0.8); Platelet Count 90 K/mm3 (140-440); Red Blood Count 2.56 M/mm3 (3.65-5.03); Red Cell Distribution Width 17.2 % (13.2-15.2)
[2019-08-15 19:44] LABS: INR 0.87 (0.87-1.13)
--- NOTE | 2019-08-15 19:44 | XRay Report ---
CHEST 1 VIEW 08/15/2019 6:36 PM INDICATION / CLINICAL INFORMATION: Chest pain. COMPARISON: Chest x-ray on 04/10/2019 FINDINGS: SUPPORT DEVICES: None. HEART / MEDIASTINUM: No significant abnormality. LUNGS / PLEURA: No significant pulmonary or pleural abnormality. No pneumothorax. ADDITIONAL FINDINGS: No significant additional findings. IMPRESSION: 1. No acute findings. Signer Name: Cooper Arnold MD Signed: 08/15/2019 7:40 PM Workstation Name: [id number]
--- NOTE | 2019-08-15 19:53 | Emergency Department Report ---
HPI - General Chief Complaint: Syncope Time Seen by Provider: 08/15/19 19:00 - HPI HPI: 49-year-old -French female presents to the emergency department via EMS from work after the patient passed out and fell to the ground. She hit the left side of her head and complains of a headache and some left-sided body aches. At the time of my examination the patient is awake, alert and oriented. Patient has a past medical history of paroxysmal atrial fibrillation, borderline diabetes and asthma. She is a tobacco smoker but denies any illicit drug use. The patient recently ran out of her flecainide and metoprolol. She follows with gianfranco Lama and has a virtual appointment next week. 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 She did not take anything, or receive anything, for his symptoms prior to presentation. The patient presents in atrial fibrillation with a very rapid rate. Currently she complains of some mild chest pain and palpitations. ED Past Medical Hx - Past Medical History Previous Medical History?: Yes Hx Hypertension: Yes Hx Diabetes: Yes (borderline) Hx Psychiatric Treatment: Yes (Depression) Additional medical history: A-fib - Surgical History Hx Cholecystectomy: Yes Hx Appendectomy: Yes Additional Surgical History: X 5, Hysterectomy. right hand surgery x 2 - Social History Smoking Status: Current Every Day Smoker Substance Use Type: Alcohol - Medications Home Medications: Home Medications Medication Instructions Recorded Confirmed Last Taken Type Dicyclomine [Bentyl] 20 mg PO PRN 12/26/18 12/26/18 Unknown History Diphenoxylate/Atropine 2.5 mg PO PRN PRN 12/26/18 12/26/18 Unknown History Flecainide [Tambocor] 50 mg PO Q12H #60 tab 12/26/18 Unknown Rx Flecainide [Tambocor] 50 mg PO Q12HR #60 tab 12/26/18 Unknown Rx Folic Acid [Folvite] 1 mg PO DAILY #30 tab 12/26/18 Unknown Rx PARoxetine HCL [Paroxetine] 30 mg PO DAILY #30 tab 12/26/18 Unknown Rx Warfarin [Coumadin] 7.5 mg PO DAILY@1700 #30 tab 12/26/18 Unknown Rx dilTIAZem CD [Cardizem CD] 180 mg PO QDAY #30 capsule 12/26/18 Unknown Rx traZODone [Desyrel] 150 mg PO QHS #30 tab 12/26/18 Unknown Rx Albuterol Sulfate [Proventil Hfa] 2 puff IH Q4HR PRN #1 hfa.aer.ad 02/24/19 Unknown Rx Famotidine [Pepcid] 40 mg PO QHS #30 tablet 03/28/19 Unknown Rx Metoprolol [Lopressor TAB] 25 mg PO BID #60 tablet 03/28/19 Unknown Rx Ibuprofen [Motrin 600 MG tab] 600 mg PO Q8H PRN #10 tablet 04/10/19 Unknown Rx methOCARBAMOL [Robaxin TAB] 500 mg PO Q6H PRN #14 tablet 04/10/19 Unknown Rx traMADoL [Ultram] 50 mg PO Q6HR PRN #12 tablet 04/10/19 Unknown Rx ED Review of Systems ROS: Stated complaint: SYNCOPE Other details as noted in HPI Comment: All other systems reviewed and negative Constitutional: denies: chills, fever Eyes: denies: eye pain, vision change ENT: denies: ear pain, throat pain Respiratory: shortness of breath. denies: cough Cardiovascular: chest pain, palpitations, syncope Gastrointestinal: denies: abdominal pain, vomiting Genitourinary: denies: dysuria, discharge Musculoskeletal: myalgia. denies: back pain Neurological: headache. denies: numbness Physical Exam - Physical Exam Vital Signs: Vital Signs 08/15/19 18:42 Temperature 98.3 F Pulse Rate 94 H Respiratory 100 H Rate Blood Pressure 112/80 O2 Sat by Pulse 100 Oximetry Physical Exam: GENERAL: The patient is well-developed well-nourished. HENT: Normocephalic. Atraumatic. Patient has moist mucous membranes. EYES: Extraocular motions are intact. No nystagmus. NECK: Supple. Trachea is midline. CHEST/LUNGS: Clear to auscultation. There is no respiratory distress noted. HEART/CARDIOVASCULAR: Irregular with severe tachycardia. ABDOMEN: Abdomen is soft, nontender. Patient has normal bowel sounds. SKIN: Skin is warm and dry. NEURO: The patient is awake, alert, and oriented. The patient is cooperative. The patient has no focal neurologic deficits. Normal speech. Cranial nerves II through XII grossly intact. MUSCULOSKELETAL: There is no tenderness or deformity. There is no evidence of acute injury. ED Course Vital Signs 08/15/19 18:42 Temperature 98.3 F Pulse Rate 94 H Respiratory 100 H Rate Blood Pressure 112/80 O2 Sat by Pulse 100 Oximetry ED Medical Decision Making - Lab Data Result diagrams: 08/15/19 23:38 08/15/19 19:24 - EKG Data -: EKG Interpreted by Me - EKG Data When compared to previous EKG there are: changes noted (Previous EKG from 03/28/2019 did not show atrial fibrillation and was a normal sinus rhythm) Interpretation: other (Atrial fibrillation with a rate of 168 bpm, normal axis. No ST elevation CT) - Radiology Data Radiology results: report reviewed, image reviewed interpreted by me: Chest x-ray does not show any acute process. There are no pleural effusions, obvious pneumonia and there is no pneumothorax. CT head/brain wo con INDICATION: Syncope, headache. TECHNIQUE: Routine CT head without contrast. All CT scans at this location are performed using CT dose reduction for ALARA by means of automated exposure control. COMPARISON: None. FINDINGS: BRAIN / INTRACRANIAL CONTENTS: No acute hemorrhage, mass effect, midline shift, or hydrocephalus. No appreciable acute large territorial or lacunar infarct. No chronic infarct or focal atrophy. Normal brain volume and ventricular/sulcal size for age. ORBITS: No significant abnormality of visuali zed orbits. SINUSES / MASTOIDS: No significant abnormality of visualized sinuses and mastoid air cells. ADDITIONAL FINDINGS: There is an extradural scalp hematoma in the left parietal scalp. IMPRESSION: 1. No acute intracranial abnormality. 2. Extra cranial scalp hematoma in the left parietal scalp. CTA CHEST WITH IV CONTRAST INDICATION: Chest pain, syncope, elevated d-dimer CONTRAST: 100 cc Omnipaque 350 IV COMPARISON: AP chest x-ray today Three-plane MIP reconstructions were produced. All CT scans at this location are performed using CT dose reduction for ALARA by means of automated exposure control. FINDINGS: No significant axillary or chest wall abnormalities are seen. Visualized portions of the upper abdomen show cholecystectomy changes as well as prominent fatty infiltration of the liver and partially visualized prominent hepatomegaly without splenomegaly. No pleural effusions are seen. No pneumothorax or pneumomediastinum are noted. No obvious endobronchial lesions are noted. Mild bilateral atelectatic changes are seen, mostly in the lower lobes. No areas of consolidation are noted. No pulmonary nodules or masses are seen. No mediastinal or hilar masses are noted. Aorta shows no aneurysmal dilatation or obvious evidence of dissection. Good opacification of the pu lmonary arterial system was achieved. I do not see evidence of pulmonary thromboembolism. IMPRESSION: 1. No significant acute abnormalities are seen. No evidence of pulmonary thromboembolism. 2. Prominent fatty infiltration of the liver with prominent hepatomegaly - Medical Decision Making This patient presents to the emergency department in atrial fibrillation with RV R after she had a syncopal episode while at work. While talking with the patient, before giving any medication, the patient appeared to convert back to a sinus rhythm. On examination she does not have any focal, motor or sensory deficits and her cranial nerves are intact. A repeat EKG later shows sinus rhythm without any morphology consistent with ST elevation CT. Patient's labs were mostly unremarkable except for some elevated liver enzymes and an elevated and equivocal d-dimer. Since the patient did hit her head when she passed out, a CT scan of the head without contrast was completed that does not show any bleed, shift, mass, ischemia, fracture, or any other acute process other than a left parietal hematoma. She had a CT angiography of the chest completed secondary to the elevated d-dimer level and this did not show any pulmonary embolism, dissection, or any other acute process. Since the patient presented with chest pain and A. fib with RVR after having syncope, the patient will be admitted to the hospital for further evaluation and treatment and was accepted for admission by the hospitalist, Dr. Green. Critical Care Time: No Critical care attestation.: If time is entered above; I have spent that time in minutes in the direct care of this critically ill patient, excluding procedure time. ED Disposition Clinical Impression: Atrial fibrillation with rapid ventricular response, Noncompliance with medication regimen, Paroxysmal atrial fibrillation, Acute chest pain Syncope Qualifiers: Syncope type: unspecified Qualified Code(s): R55 - Syncope and collapse Disposition: OP ADMIT IP TO THIS HOSP Is pt being admited?: Yes Condition: Fair Time of Disposition: 21:32
[2019-08-15 19:58] LABS: Alanine Aminotransferase 130 units/L (7-56); Albumin 4.3 g/dL (3.9-5); BUN/Creatinine Ratio 15; Blood Urea Nitrogen 6 mg/dL (7-17); Calcium 9.1 mg/dL (8.4-10.2); Hemolysis Index 6
--- NOTE | 2019-08-15 20:21 | Cat Scan Report ---
CT head/brain wo con INDICATION: Syncope, headache. TECHNIQUE: Routine CT head without contrast. All CT scans at this location are performed using CT dos e reduction for ALARA by means of automated exposure control. COMPARISON: None. FINDINGS: BRAIN / INTRACRANIAL CONTENTS: No acute hemorrhage, mass effect, midline shift, or hydrocephalus. No appreciable acute large territorial or lacunar infarct. No chronic infarct or focal atrophy. Normal b rain volume and ventricular/sulcal size for age. ORBITS: No significant abnormality of visualized orbits. SINUSES / MASTOIDS: No significant abnormality of visualized sinuses and mastoid air cells. ADDITIONAL FINDINGS: There is an extradural scalp hematoma in the left parietal scalp. IMPRESSION: 1. No acute intracranial abnormality. 2. Extra cranial scalp hematoma in the left parietal scalp. Signer Name: Cooper Arnold MD Signed: 08/15/2019 8:17 PM Workstation Name: [id number]
[2019-08-15] MEDS ORDERED: MORPHINE 4 MG/1 ML INJ IV ONE (20:30)
--- NOTE | 2019-08-15 21:13 | Cat Scan Report ---
CTA CHEST WITH IV CONTRAST INDICATION: Chest pain, syncope, elevated d-dimer CONTRAST: 100 cc Omnipaque 350 IV COMPARISON: AP chest x-ray today Three-plane MIP reconstructions were produced. All CT scans at this location are performed using CT d ose reduction for ALARA by means of automated exposure control. FINDINGS: No significant axillary or chest wall abnormalities are seen. Visualized portions of the up per abdomen show cholecystectomy changes as well as prominent fatty infiltration of the liver and par tially visualized prominent hepatomegaly without splenomegaly. No pleural effusions are seen. No pneu mothorax or pneumomediastinum are noted. No obvious endobronchial lesions are noted. Mild bilateral a telectatic changes are seen, mostly in the lower lobes. No areas of consolidation are noted. No pulmo nary nodules or masses are seen. No mediastinal or hilar masses are noted. Aorta shows no aneurysmal dilatation or obvious evidence of dissection. Good opacification of the pulmonary arterial system was achieved. I do not see evidence of pulmonary thromboembolism. IMPRESSION: 1. No significant acute abnormalities are seen. No evidence of pulmonary thromboembolism. 2. Prominent fatty infiltration of the liver with prominent hepatomegaly Signer Name: Da Barnett MD Signed: 08/15/2019 9:08 PM Workstation Name: [id number]
[2019-08-15] MEDS ORDERED: ONDANSETRON 4 MG/2 ML INJ IV PRN (22:54)
[2019-08-15] MEDS ORDERED: ACETAMINOPHEN 325 MG TAB PO PRN (22:54)
[2019-08-15] MEDS ORDERED: HEPARIN/ 0.45% NACL DRIP 25,000 UNIT/500 ML BAG IV SCH (23:30)
[2019-08-15] MEDS ORDERED: HEPARIN 10,000 UNITS/10 ML VIAL IV ONE (23:30)
[2019-08-16 00:06] LABS: Hematocrit 30.7 % (30.3-42.9); Hemoglobin 10.8 gm/dl (10.1-14.3)
[2019-08-16 00:15] LABS: INR 0.96 (0.87-1.13); Partial Thromboplastin Time 23.4 Sec. (24.2-36.6)
[2019-08-16 00:31] LABS: Creatine Kinase MB 1.7 ng/mL (0.0-4.0)
[2019-08-16] MEDS: MORPHINE 2 MG/1 ML INJ IV PRN ×2 (00:33→08:37)
--- NOTE | 2019-08-16 05:23 | History and Physical Report ---
History of Present Illness Date of examination: 08/15/19 Date of admission: 08/15/19 21:33 Chief complaint: Syncope History of present illness: 49 year old female presenting with complaint of syncope at work, there was prior chest pain and shortness of breath before the syncopal attack. There is no history of fever, chills, cough. Patient does not know the length of time the syncope lasted. Past History Past Medical History: atrial fib, diabetes, hypertension, other (DEPRESSION AND ASTHMA) Past Surgical History: appendectomy, cholecystectomy, , hysterectomy, Other (HAND SURGERY) Social history: no significant social history Family history: no significant family history Medications and Allergies Allergies Allergy/AdvReac Type Severity Reaction Status Date / Time No Known Allergies Allergy Verified 12/26/18 00:18 Home Medications Medication Instructions Recorded Confirmed Last Taken Type Dicyclomine [Bentyl] 20 mg PO PRN 12/26/18 12/26/18 Unknown History Diphenoxylate/Atropine 2.5 mg PO PRN PRN 12/26/18 12/26/18 Unknown History Flecainide [Tambocor] 50 mg PO Q12H #60 tab 12/26/18 Unknown Rx Flecainide [Tambocor] 50 mg PO Q12HR #60 tab 12/26/18 Unknown Rx Folic Acid [Folvite] 1 mg PO DAILY #30 tab 12/26/18 Unknown Rx PARoxetine HCL [Paroxetine] 30 mg PO DAILY #30 tab 12/26/18 Unknown Rx Warfarin [Coumadin] 7.5 mg PO DAILY@1700 #30 tab 12/26/18 Unknown Rx dilTIAZem CD [Cardizem CD] 180 mg PO QDAY #30 capsule 12/26/18 Unknown Rx traZODone [Desyrel] 150 mg PO QHS #30 tab 12/26/18 Unknown Rx Albuterol Sulfate [Proventil Hfa] 2 puff IH Q4HR PRN #1 hfa.aer.ad 02/24/19 Unknown Rx Famotidine [Pepcid] 40 mg PO QHS #30 tablet 03/28/19 Unknown Rx Metoprolol [Lopressor TAB] 25 mg PO BID #60 tablet 03/28/19 Unknown Rx Ibuprofen [Motrin 600 MG tab] 600 mg PO Q8H PRN #10 tablet 04/10/19 Unknown Rx methOCARBAMOL [Robaxin TAB] 500 mg PO Q6H PRN #14 tablet 04/10/19 Unknown Rx traMADoL [Ultram] 50 mg PO Q6HR PRN #12 tablet 04/10/19 Unknown Rx Active Meds: Active Medications Acetaminophen (Tylenol) 650 mg PO Q4H PRN PRN Reason: Fever >101 Aspirin (Baby Aspirin) 81 mg PO QDAY [facility] Heparin Sodium/Sodium Chloride (Heparin/ 0.45% Nacl-25,000 Unit/500 Ml) 25,000 unit in 500 mls @ 21 mls/hr IV TITR [facility]; Protocol Last Admin: 08/16/19 00:36 Dose: 1,050 units/hr, 21 mls/hr Documented by: Morphine Sulfate (Morphine) 2 mg IV Q3H PRN PRN Reason: Pain, Moderate (4-6) Last Admin: 08/16/19 00:33 Dose: 2 mg Documented by: Nitroglycerin (Nitro-Bid 2%) 0.5 inch TP TIDNTG [facility]; Protocol Last Admin: 08/16/19 05:04 Dose: Not Given Documented by: Ondansetron HCl (Zofran) 4 mg IV Q8H PRN PRN Reason: Nausea And Vomiting Review of Systems Constitutional: weakness, no weight loss, no weight gain, no fever, no chills, no sweats, no anorexia, no fatigue Eyes: bilateral: other (NO BILATERAL EYE SYMPTOMS) Ears, nose, mouth and throat: no ear pain, no ear discharge, no tinnitis, no nasal congestion, no dysphagia, no sore throat Breasts: deferred Cardiovascular: chest pain, palpitations, rapid/irregular heart beat, syncope, shortness of breath, high blood pressure, no orthopnea, no lightheadedness Respiratory: shortness of breath, no cough, no hemoptysis, no congestion, no wheezing, no pleurisy, no respiratory infections Gastrointestinal: no abdominal pain, no nausea, no vomiting, no diarrhea, no constipation, no hematemesis, no hematochezia, no jaundice Genitourinary Female: no hematuria, no kidney stones Rectal: no pain, no itching Musculoskeletal: no neck stiffness, no arthritis Integumentary: no rash, no pruritis, no redness, no jaundice, no bullae, no acne Neurological: weakness, syncope, headaches, no parathesias, no numbness, no seizures, no tremors, no ataxia, no convulsions, no change in speech, no change in mentation, no confusion, no memory loss, no gait dysfunction Psychiatric: no anxiety, no insomnia, no hypersomnia, no suicidal ideation, no hopelessness, no confusion Endocrine: no polyphagia, no polydipsia, no polyuria, no nocturia, no excessive sweating, no palpatations, no high blood sugars Hematologic/Lymphatic: no easy bruising, no easy bleeding Exam - Constitutional Vitals: Temp Pulse Resp BP Pulse Ox 99.1 F 92 H 18 120/83 100 08/15/19 23:39 08/16/19 00:12 08/16/19 00:33 08/15/19 23:39 08/15/19 18:42 General appearance: Present: no acute distress. Absent: disheveled, malodorous - EENT Eyes: Present: PERRL, EOM intact. Absent: scleral icterus ENT: hearing intact - Neck Neck: Present: supple, normal ROM - Respiratory Respiratory effort: normal - Cardiovascular Rhythm: regular Heart Sounds: Present: S1 & S2. Absent: gallop, systolic murmur, diastolic murmur, click - Extremities Extremities: no ischemia, No edema Peripheral Pulses: within normal limits - Abdominal General gastrointestinal: Present: soft, non-tender, non-distended. Absent: tender, distended, rigid, hypoactive bowel sounds, hepatomegaly, splenomegaly, mass, hernia Female genitourinary: Present: deferred - Rectal Rectal Exam: deferred - Integumentary Integumentary: Present: clear, warm, normal turgor. Absent: dry, jaundice, clammy - Musculoskeletal Musculoskeletal: strength equal bilaterally - Psychiatric Psychiatric: appropriate mood/affect - Neurologic Neurologic: gait normal HEART Score - HEART Score Troponin: Troponin T < 0.010 ng/mL (0.00-0.029) 08/16/19 00:08 Results - Labs CBC & Chem 7: 08/15/19 23:38 08/15/19 19:24 Labs: Laboratory Last Values WBC 2.5 K/mm3 (4.5-11.0) L 08/15/19 19:24 RBC 2.56 M/mm3 (3.65-5.03) L 08/15/19 19:24 Hgb 10.8 gm/dl (10.1-14.3) 08/15/19 23:38 Hct 30.7 % (30.3-42.9) 08/15/19 23:38 MCV 115 fl (79-97) H 08/15/19 19:24 MCH 41 pg (28-32) H 08/15/19 19:24 MCHC 35 % (30-34) H 08/15/19 19:24 RDW 17.2 % (13.2-15.2) H 08/15/19 19:24 Plt Count 91 K/mm3 (140-440) L 08/15/19 23:38 Lymph % (Auto) 53.8 % (13.4-35.0) H 08/15/19 19:24 [place] % (Auto) 7.0 % (0.0-7.3) 08/15/19 19:24 Eos % (Auto) 0.2 % (0.0-4.3) 08/15/19 19:24 Baso % (Auto) 0.3 % (0.0-1.8) 08/15/19 19:24 Lymph # 1.3 K/mm3 (1.2-5.4) 08/15/19 19:24 [place] # 0.2 K/mm3 (0.0-0.8) 08/15/19 19:24 Eos # 0.0 K/mm3 (0.0-0.4) 08/15/19 19:24 Baso # 0.0 K/mm3 (0.0-0.1) 08/15/19 19:24 Seg Neutrophils % 38.7 % (40.0-70.0) L 08/15/19 19:24 Seg Neutrophils # 1.0 K/mm3 (1.8-7.7) L 08/15/19 19:24 PT 12.6 Sec. (12.2-14.9) 08/15/19 23:38 INR 0.96 (0.87-1.13) 08/15/19 23:38 APTT 23.4 Sec. (24.2-36.6) L 08/15/19 23:38 D-Dimer 391.18 ng/mlDDU (0-234) H 08/15/19 19:24 Sodium 137 mmol/L (137-145) 08/15/19 19:24 Potassium 3.6 mmol/L (3.6-5.0) 08/15/19 19:24 Chloride 99.1 mmol/L (98-107) 08/15/19 19:24 Carbon Dioxide 17 mmol/L (22-30) L 08/15/19 19:24 Anion Gap 25 mmol/L 08/15/19 19:24 BUN 6 mg/dL (7-17) L 08/15/19 19:24 Creatinine 0.4 mg/dL (0.7-1.2) L 08/15/19 19:24 Estimated GFR > 60 ml/min 08/15/19 19:24 BUN/Creatinine Ratio 15 % 08/15/19 19:24 Glucose 101 mg/dL (65-100) H 08/15/19 19:24 Calcium 9.1 mg/dL (8.4-10.2) 08/15/19 19:24 Total Bilirubin 0.60 mg/dL (0.1-1.2) 08/15/19 19:24 AST 350 units/L (5-40) H 08/15/19 19:24 ALT 130 units/L (7-56) H 08/15/19 19:24 Alkaline Phosphatase 80 units/L (35-129) 08/15/19 19:24 Total Creatine Kinase 240 units/L (30-135) H 08/16/19 00:08 CK-MB (CK-2) 1.7 ng/mL (0.0-4.0) 08/16/19 00:08 CK-MB (CK-2) Rel Index 0.7 (0-4) 08/16/19 00:08 Troponin T < 0.010 ng/mL (0.00-0.029) 08/16/19 00:08 Total Protein 7.1 g/dL (6.3-8.2) 08/15/19 19:24 Albumin 4.3 g/dL (3.9-5) 08/15/19 19:24 Albumin/Globulin Ratio 1.5 % 08/15/19 19:24 TSH 0.593 mlU/mL (0.270-4.200) 08/15/19 19:24 [place]osa/IV: IV Catheter Type [Right Peripheral IV Forearm] Assessment and Plan - Patient Problems (1) Acute chest pain Current Visit: Yes Status: Acute Plan to address problem: 1. Tele mornitoring 2. Serial cardiac enzyme 3. Aspirin po 4. Nitropaste 5 I.V Morphine for pain 6. I.V Zofran for nausea and vomiting. 7. cardiology consult with Vernell Castillo 8. Oxygen by N/C (2) Atrial fibrillation with rapid ventricular response Current Visit: Yes Status: Acute Plan to address problem: 1. Tele mornitoring 2. I.V Heparin for anticoagulation 3. PRN I.V Lopressor for Heart rate above 100 (3) Syncope Current Visit: Yes Status: Acute Qualifiers: Syncope type: unspecified Qualified Code(s): R55 - Syncope and collapse Plan to address problem: 1. Bilateral Carotid doppler Ultrasound 2. 2 D Echocardiogram 3. I.V N/saline 4 Accu checks followed by sliding scale insulin coverage
[2019-08-16] MEDS ORDERED: DEXTROSE 50% IN WATER (25GM) 50 ML SYRINGE IV PRN (05:57)
[2019-08-16] MEDS ORDERED: SODIUM CHLORIDE 0.9% 1000 ML 1,000 ML IV SCH (06:00)
[2019-08-16] MEDS ORDERED: NITROGLYCERIN 2% OINT 1 GM TP SCH (06:00)
[2019-08-16] MEDS: INSULIN LISPRO 100 UNIT/ML SUB-Q SCH ×2 (07:49→10:45)
[2019-08-16 08:35] LABS: Creatine Kinase MB 1.1 ng/mL (0.0-4.0)
--- NOTE | 2019-08-16 09:28 | Discharge Summary ---
Providers - Providers Date of Admission: 08/15/19 21:33 Attending physician: MALINDA MICHAEL MD 08/16/19 06:00 Consult to Physician [CONS] Routine Comment: Consulting Provider: RENALDO DUTTA Physician Instructions: Reason For Exam: A .FIB WITH RVR. CHEST PAIN , SYNCOPE Primary care physician: SENIOR DEVOPS ENGINEER Hospitalization Condition: Stable Hospital course: tobacco use and cessation Disposition: DC-01 TO HOME OR SELFCARE Core Measure Documentation - Palliative Care Palliative Care/ Comfort Measures: Not Applicable Exam - Constitutional Vitals: Temp Pulse Resp BP Pulse Ox 98.8 F 88 18 130/84 97 08/16/19 07:22 08/16/19 04:54 08/16/19 07:22 08/16/19 07:22 08/16/19 04:54 Plan Activity: advance as tolerated, fall precautions Diet: low fat Special Instructions: record daily weights, record daily BP diary, smoking cessation Additional Instructions: follow with primary spout tender per prior plan. cardiology recommends not to restart metoprolol and flecanide till evaluated by your primary spout tender. also we recommend an out patient Stress test with your primary spout tender. No strenouse activity this this is done. Follow up with: PRIMARY CARE, [Primary Care Provider] - 3-5 Days Prescriptions: Warfarin [Coumadin] 7.5 mg PO DAILY@1700 #30 tab methOCARBAMOL [Robaxin TAB] 500 mg PO Q6H PRN #14 tablet PRN Reason: Muscle Spasm traMADoL [Ultram 50 MG tab] 50 mg PO Q6HR PRN #10 tablet PRN Reason: Pain
--- NOTE | 2019-08-16 09:58 | Consultation ---
History of Present Illness Consult date: 08/16/19 Consult reason: syncope History of present illness: 49-year-old -[place] female who presents after a syncopal episode at work. She works at the [employer] and states she suddenly felt dizzy and passed out. She has a history of paroxysmal atrial fibrillation and had been on metoprolol and flecainide. She states she has not seen a door clamper in over 2 years and has been out of her medications for the past 2 months. Past History Past Medical History: atrial fib, diabetes, hypertension, other (DEPRESSION AND ASTHMA) Past Surgical History: appendectomy, cholecystectomy, , hysterectomy, Other (HAND SURGERY) Social history: no significant social history Family history: no significant family history Medications and Allergies Allergies Allergy/AdvReac Type Severity Reaction Status Date / Time No Known Allergies Allergy Verified 12/26/18 00:18 Home Medications Medication Instructions Recorded Confirmed Last Taken Type Dicyclomine [Bentyl] 20 mg PO PRN 12/26/18 08/16/19 Unknown History Diphenoxylate/Atropine 2.5 mg PO PRN PRN 12/26/18 08/16/19 Unknown History Folic Acid [Folvite] 1 mg PO DAILY #30 tab 12/26/18 08/16/19 Unknown Rx PARoxetine HCL [Paroxetine] 30 mg PO DAILY #30 tab 12/26/18 08/16/19 Unknown Rx traZODone [Desyrel] 150 mg PO QHS #30 tab 12/26/18 08/16/19 Unknown Rx Albuterol Sulfate [Proventil Hfa] 2 puff IH Q4HR PRN #1 hfa.aer.ad 02/24/19 08/16/19 Unknown Rx Famotidine [Pepcid] 40 mg PO QHS #30 tablet 03/28/19 08/16/19 Unknown Rx Flecainide [Tambocor] 50 mg PO Q12HR #60 tab 08/16/19 Unknown Rx Metoprolol [Lopressor TAB] 25 mg PO BID #60 tablet 08/16/19 Unknown Rx Warfarin [Coumadin] 7.5 mg PO DAILY@1700 #30 tab 08/16/19 Unknown Rx dilTIAZem CD [Cardizem CD] 180 mg PO QDAY #30 capsule 08/16/19 Unknown Rx methOCARBAMOL [Robaxin TAB] 500 mg PO Q6H PRN #14 tablet 08/16/19 Unknown Rx traMADoL [Ultram 50 MG tab] 50 mg PO Q6HR PRN #10 tablet 08/16/19 Unknown Rx Active Meds: Active Medications Acetaminophen (Tylenol) 650 mg PO Q4H PRN PRN Reason: Fever >101 Aspirin (Baby Aspirin) 81 mg PO QDAY [facility] Dextrose (D50w (25gm) Syringe) 50 ml IV Q30MIN PRN; Protocol PRN Reason: Hypoglycemia Enoxaparin Sodium (Enoxaparin) 40 mg SUB-Q QDAY@1000 IMANI Sodium Chloride (Nacl 0.9% 1000 Ml) 1,000 mls @ 75 mls/hr IV DIRECT IMANI Insulin Human Lispro (Humalog) 0 unit SUB-Q Q4HR [facility]; Protocol Last Admin: 08/16/19 07:49 Dose: Not Given Documented by: Morphine Sulfate (Morphine) 2 mg IV Q3H PRN PRN Reason: Pain, Moderate (4-6) Last Admin: 08/16/19 08:37 Dose: 2 mg Documented by: Nitroglycerin (Nitro-Bid 2%) 0.5 inch TP TIDNTG [facility]; Protocol Last Admin: 08/16/19 05:04 Dose: Not Given Documented by: Ondansetron HCl (Zofran) 4 mg IV Q8H PRN PRN Reason: Nausea And Vomiting Review of Systems All systems: negative Neurological: syncope Physical Examination Vital Signs Temp Pulse Resp BP Pulse Ox 98.3 F 94 H 18 112/80 100 08/15/19 18:42 08/15/19 18:42 08/15/19 18:42 08/15/19 18:42 08/15/19 18:42 General appearance: no acute distress, well-nourished HEENT: Positive: PERRL, Mucus Membranes Moist Neck: Positive: neck supple, trachea midline Cardiac: Positive: Reg Rate and Rhythm, S1/S2. Negative: Audible Murmur Lungs: Positive: clear to auscultation, Normal Breath Sounds Neuro: Positive: Grossly Intact Abdomen: Positive: Soft, Active Bowel Sounds. Negative: Tender, Distended Female genitourinary: deferred Skin: Positive: Clear Incision: Cardiac Cath Site Musculoskeletal: No Pain, Normal Range of Motion Extremities: Present: normal. Absent: edema Results 08/15/19 23:38 08/15/19 19:24 Cardiac Enzymes 08/15/19 08/16/19 08/16/19 Range/Units 19:24 00:08 07:45 AST 350 H (5-40) units/L CK-MB (CK-2) 1.7 1.1 (0.0-4.0) ng/mL Coagulation 08/15/19 08/15/19 Range/Units 19:24 23:38 PT 11.7 L 12.6 (12.2-14.9) Sec. INR 0.87 0.96 (0.87-1.13) APTT 23.4 L (24.2-36.6) Sec. CBC 08/15/19 08/15/19 Range/Units 19:24 23:38 WBC 2.5 L (4.5-11.0) K/mm3 RBC 2.56 L (3.65-5.03) M/mm3 Hgb 10.4 10.8 (10.1-14.3) gm/dl Hct 29.4 L 30.7 (30.3-42.9) % Plt Count 90 L 91 L (140-440) K/mm3 Lymph # 1.3 (1.2-5.4) K/mm3 [place] # 0.2 (0.0-0.8) K/mm3 Eos # 0.0 (0.0-0.4) K/mm3 Baso # 0.0 (0.0-0.1) K/mm3 Comprehensive Metabolic Panel 08/15/19 Range/Units 19:24 Sodium 137 (137-145) mmol/L Potassium 3.6 (3.6-5.0) mmol/L Chloride 99.1 (98-107) mmol/L Carbon Dioxide 17 L (22-30) mmol/L BUN 6 L (7-17) mg/dL Creatinine 0.4 L (0.7-1.2) mg/dL Glucose 101 H (65-100) mg/dL Calcium 9.1 (8.4-10.2) mg/dL AST 350 H (5-40) units/L ALT 130 H (7-56) units/L Alkaline Phosphatase 80 (35-129) units/L Total Protein 7.1 (6.3-8.2) g/dL Albumin 4.3 (3.9-5) g/dL - EKG Interpretation EKG: sinus rhythm EKG interpretations - EKG Sinus rhythms and dysrhythmias: sinus rhythm Assessment and Plan 1. Syncope etiology unclear probably vasovagal 2. History of paroxysmal atrial fibrillation. 3. Type 2 diabetes mellitus 4. Questionable elevation of liver enzymes Plan. Patient is stable cardiac [place] would recommend a stress MPI either as an in or outpatient to further evaluate for coronary artery disease and echocardiogram to assess global and regional function of the left ventricle. Need for continued use of flecainide and metoprolol unclear this needs to be further evaluated however for now hold restarting this medications
[2019-08-16] MEDS ORDERED: ENOXAPARIN 30 MG/0.3 ML INJ SUB-Q SCH (10:00)
[2019-08-16] MEDS ORDERED: ENOXAPARIN 40 MG/0.4 ML INJ SUB-Q SCH (10:00)
[2019-08-16] MEDS ORDERED: ASPIRIN 81 MG TAB CHEW PO SCH (10:00)
[2019-08-16 13:48] VITALS: BP 124/88
[2019-08-16] MEDS ORDERED: INSULIN LISPRO 100 UNIT/ML SUB-Q SCH (16:30)
== END 2019-08-16 12:45 | disposition home or self-care (01) ==
LOC: ED 18:14 → 4A 21:33
PROVIDERS: ADMIT Internal Medicine; ATTEND Internal Medicine
DX: R07.89 Other chest pain (principal); I48.20 Chronic atrial fibrillation, unspecified; R55 Syncope and collapse; I10 Essential (primary) hypertension; I48.0 Paroxysmal atrial fibrillation; E11.9 Type 2 diabetes mellitus without complications; J45.909 Unspecified asthma, uncomplicated; F32.9 Major depressive disorder, single episode, unspecified; F17.210 Nicotine dependence, cigarettes, uncomplicated; Z90.49 Acquired absence of other specified parts of digestive tract; Z98.890 Other specified postprocedural states; Z98.891 History of uterine scar from previous surgery; Z90.710 Acquired absence of both cervix and uterus; Z79.01 Long term (current) use of anticoagulants; Z79.82 Long term (current) use of aspirin; Z91.14 Patient's other noncompliance with medication regimen
CPT/HCPCS: 36415; 70450; 71045; 71275; 80053; 82550; 82553; 82962; 84443; 84484; 85014; 85018; 85025; 85049; 85379; 85520; 85610; 85730; 93005; 96361; 96365; 96366; 96372; 96375; 96376; 99285; 99406; G0378; J1644; J1650; J2270; J7030; Q9967